=== PATIENT | male | born 1945 | race Two or more races ===

== ENCOUNTER 2017-09-10 14:27 | Outpatient (CLI) | payer MEDICARE, OTHER ==
[~2017-09-10 14:27] MED LIST: ALBUTEROL SULF8.5 GM INH; AMLODIPINE BES2.5 MG ORAL; ATORVASTATIN CA20 MG ORAL; FERROUS SULFAT325 MG ORAL; FISH OIL500 MG PO; FLONASE1 SPRAYS NASAL; LUMIGAN2.5 ML BOTH EYES; MONTELUKAST SOD10 MG ORAL; NEXIUM40 MG ORAL; PROAIR HFA8.5 GM INH; PROMETHAZINE-C118 M1 ORAL; RESTASIS1 EACH BOTH EYES; SELENIUM SULFI120 ML TP; TRUSOPT10 ML BOTH EYES; VITAMIN B COMP1 EAC2 ORAL; VITAMIN D250000 UNI1 ORAL; ZOFRAN ODT4 MG ORAL
--- NOTE | 2017-09-14 13:18 | GI Progress Note ---
Assessment/Plan Problems: (1) Rectal bleed ICD Codes: K62.5 - Hemorrhage of anus and rectum SNOMED: 79262667 (2) GERD (gastroesophageal reflux disease) ICD Codes: K21.9 - GERD (gastroesophageal reflux disease) SNOMED: 892096612 (3) Prostate cancer ICD Codes: C61 - Prostate cancer SNOMED: 543339988 (4) Dehydration ICD Codes: E86.0 - Dehydration SNOMED: 68570840 (5) Dyslipidemia ICD Codes: E78.5 - Dyslipidemia SNOMED: 823656702 (6) Asthma ICD Codes: J45.909 - Asthma SNOMED: 327360137 Status: stable Status Narrative Seen with Dr. Plascencia. Assessment/Plan EGD/colon 2014, s/p EUS c FNA for gastric submucosal lesion, see report. Hemorrhoids vs proctitis however, symptoms most resemble hemorrhoids Annusol HC trial Canasa if above fails RTC x 1 month. Note this is a late entry. The patient was seen and examined at bedside and all new and available data was reviewed in the patients chart. I agree with the above findings, impression and plan. (Patient seen earlier today. Signature stamp does not reflect patient encounter time.). - Renetta Plascencia MD Subjective Subjective constipation rectal bleeding Objective T 98.2 BP 130/76 HR 70 95 RA General Appearance: WD/WN, no apparent distress, alert Cardiovascular: normal rate Respiratory/Chest: normal breath sounds, no respiratory distress Abdominal Exam: normal bowel sounds, non tender, soft Extremities: normal range of motion, non-tender Jayashree Shah N.P. Sep 14, 2017 13:18 WOODY PLASCENCIA Sep 22, 2017 13:27
== END 2017-09-10 14:59 | disposition home or self-care (01) ==
LOC: PAN 14:27
DX: K62.5 Hemorrhage of anus and rectum (principal); K21.9 Gastro-esophageal reflux disease without esophagitis; C61 Malignant neoplasm of prostate; E86.0 Dehydration; E78.5 Hyperlipidemia, unspecified; J45.909 Unspecified asthma, uncomplicated
CPT/HCPCS: 99212

== ENCOUNTER 2017-09-21 14:46 | Outpatient (CLI) | payer MEDICARE, OTHER ==
--- NOTE | 2017-09-21 15:24 | GI Progress Note ---
Assessment/Plan Problems: (1) Proctitis ICD Codes: K62.89 - Other specified diseases of anus and rectum SNOMED: 5878615 (2) Rectal bleed ICD Codes: K62.5 - Hemorrhage of anus and rectum SNOMED: 09442435 Status: stable Status Narrative Seen with Dr. Plascencia. Assessment/Plan trial Canasa & rowasa suppository RTC x 2 weeks. Subjective Subjective abdominal pain rectal bleeding urge to have BM without movement Objective T 98.3 BP 107/71 P 88 95 RA General Appearance: WD/WN, no apparent distress, alert Cardiovascular: normal rate Respiratory/Chest: normal breath sounds, no respiratory distress Abdominal Exam: normal bowel sounds, non tender, soft Extremities: normal range of motion, non-tender Jayashree Shah N.P. Sep 21, 2017 15:24
== END 2017-09-21 15:16 | disposition home or self-care (01) ==
LOC: PAN 14:46
DX: K62.5 Hemorrhage of anus and rectum (principal); K62.89 Other specified diseases of anus and rectum; R10.9 Unspecified abdominal pain
CPT/HCPCS: 99212

== ENCOUNTER 2017-10-06 10:34 | Outpatient (CLI) | payer MEDICARE, OTHER ==
[2017-10-06 15:54] VITALS: BP 119/90
[2017-10-06] MEDS ORDERED: ZANTAC150 MG ORAL (16:00)
[2017-10-06] MEDS ORDERED: PROCTOCREAM-HC30 GM RC (16:00)
[2017-10-06] MEDS ORDERED: CANASA1000 M1 RC (16:00)
[2017-10-06] MEDS ORDERED: ALIGN4 M1 PO (16:00)
[2017-10-06] MEDS ORDERED: KLONOPIN0.5 MG ORAL (16:00)
--- NOTE | 2017-10-07 09:25 | GI Progress Note ---
Assessment/Plan Problems: (1) Rectal bleed ICD Codes: K62.5 - Hemorrhage of anus and rectum SNOMED: 78431459 (2) Proctitis ICD Codes: K62.89 - Other specified diseases of anus and rectum SNOMED: 8988585 (3) Prostate cancer ICD Codes: C61 - Prostate cancer SNOMED: 881379502 (4) GERD (gastroesophageal reflux disease) ICD Codes: K21.9 - GERD (gastroesophageal reflux disease) SNOMED: 629017535 Status: stable Status Narrative Discussed with Dr. Plascencia. Assessment/Plan cont anusol cont Canasa 1gm RTC x 3 months Subjective Subjective anusol working well, less bleed Objective Last 24 Hour Vital Signs Date Time Temp Pulse Resp B/P (MAP) Pulse Ox O2 Delivery O2 Flow Rate FiO2 10/06/17 15:54 98.2 72 119/90 95 98.2 General Appearance: alert Cardiovascular: normal rate Respiratory/Chest: normal breath sounds, no respiratory distress Abdominal Exam: normal bowel sounds, non tender, soft Extremities: normal range of motion, non-tender Jayashree Shah N.P. Oct 07, 2017 09:25
== END 2017-10-06 11:09 | disposition home or self-care (01) ==
LOC: PAN 10:34
DX: K62.5 Hemorrhage of anus and rectum (principal); K62.89 Other specified diseases of anus and rectum; C61 Malignant neoplasm of prostate; K21.9 Gastro-esophageal reflux disease without esophagitis
CPT/HCPCS: 99212

== ENCOUNTER 2018-02-18 13:53 | Outpatient (CLI) | payer MEDICARE, OTHER ==
[~2018-02-18 13:53] MED LIST changes: +ALIGN4 M1 PO; +CANASA1000 M1 RC; +KLONOPIN0.5 MG ORAL; +PROCTOCREAM-HC30 GM RC; +ZANTAC150 MG ORAL
[2018-02-18 14:06] VITALS: BP 123/68
[2018-02-18] MEDS ORDERED: VITAMIN B125000 MCG PO (14:51)
[2018-02-18] MEDS ORDERED: MYRBETRIQ25 MG PO (14:51)
--- NOTE | 2018-02-25 15:17 | General Progress Note ---
Assessment/Plan Problem List: (1) HTN (hypertension) ICD Codes: I10 - HTN (hypertension) SNOMED: 67627579 (2) GERD (gastroesophageal reflux disease) ICD Codes: K21.9 - GERD (gastroesophageal reflux disease) SNOMED: 088086349 (3) Rectal bleed ICD Codes: K62.5 - Hemorrhage of anus and rectum SNOMED: 14515549 Assessment/Plan add rectal steroids Subjective ROS Limited/Unobtainable: Yes Allergies: Coded Allergies: No Known Allergies (Unverified , 10/10/14) Subjective rectal pain Objective General Appearance: alert EENT: normal ENT inspection Neck: supple Cardiovascular: normal rate Respiratory/Chest: decreased breath sounds Abdomen: normal bowel sounds, non tender, soft Extremities: non-tender Garrick Plascencia MD Feb 25, 2018 15:17
== END 2018-02-18 14:25 | disposition home or self-care (01) ==
LOC: PAN 13:53
DX: K21.9 Gastro-esophageal reflux disease without esophagitis (principal); K62.5 Hemorrhage of anus and rectum; I10 Essential (primary) hypertension
CPT/HCPCS: 99212

== ENCOUNTER 2018-03-30 10:25 | Outpatient (CLI) | payer MEDICARE, OTHER ==
[~2018-03-30 10:25] MED LIST changes: +MYRBETRIQ25 MG PO; +VITAMIN B125000 MCG PO
[2018-03-30] MEDS ORDERED: VIBERZI75 MG PO (11:06)
[2018-03-30 11:14] VITALS: BP 117/75
--- NOTE | 2018-03-30 14:54 | GI Progress Note ---
Assessment/Plan Problems: (1) Ulcerative colitis ICD Codes: K51.90 - Ulcerative colitis, unspecified, without complications SNOMED: 85794485 (2) Rectal bleed ICD Codes: K62.5 - Hemorrhage of anus and rectum SNOMED: 95905997 (3) GERD (gastroesophageal reflux disease) ICD Codes: K21.9 - GERD (gastroesophageal reflux disease) SNOMED: 394933087 (4) Dehydration ICD Codes: E86.0 - Dehydration SNOMED: 30348395 Status: stable Status Narrative Seen with Dr. Plascencia. Assessment/Plan Trial Uceris cont enema cont Canasa RTC x 2 weeks The patient was seen and examined at bedside and all new and available data was reviewed in the patients chart. I agree with the above findings, impression and plan. (Patient seen earlier today. Signature stamp does not reflect patient encounter time.). - Garrick Plascencia MD Subjective Subjective abdominal pain >> LUQ/LLQ diarrhea with increased urgency rectal bleed weight loss saw Dr. Wilson last thursday ?Winifred REED Objective Last 24 Hour Vital Signs Date Time Temp Pulse Resp B/P (MAP) Pulse Ox O2 Delivery O2 Flow Rate FiO2 03/30/18 11:14 98.2 68 16 117/75 97 98.2 General Appearance: WD/WN, no apparent distress, alert Cardiovascular: normal rate Respiratory/Chest: normal breath sounds, no respiratory distress Abdominal Exam: normal bowel sounds, non tender, soft Extremities: normal range of motion, non-tender Estelle Shah NP Mar 30, 2018 14:54
== END 2018-03-30 10:55 | disposition home or self-care (01) ==
LOC: PAN 10:25
DX: K51.90 Ulcerative colitis, unspecified, without complications (principal); K62.5 Hemorrhage of anus and rectum; K21.9 Gastro-esophageal reflux disease without esophagitis
CPT/HCPCS: 99212

== ENCOUNTER 2018-04-26 00:37 | Inpatient (IN) | payer MEDICARE, OTHER ==
[~2018-04-26] VITALS: Ht 167.6 cm; Wt 66.7 kg
[~2018-04-26 00:37] MED LIST changes: +VIBERZI75 MG PO
[2018-04-26] MEDS ORDERED: Morphine Sulfate 2mg/ml Inj IVP ONE (01:15)
[2018-04-26] MEDS ORDERED: Pantoprazole Inj IV ONE (01:15)
--- NOTE | 2018-04-26 01:28 | Emergency Room Report ---
History of Present Illness General Chief Complaint: Gastrointestinal Bleed Source: Patient Present Illness HPI 72-year-old male for evaluation. Brought in for rectal bleeding. States he's been having blood in his stool for several months now but got progressively worse over the last few days. Feeling very weak. Has no appetite. Denies any blood thinners. Has been seen by Dr. Plascencia in the past. A seriously admitted to [facility] last week but not for his rectal bleeding. states pain is dull, 5 out of 10, nonradiating. Denies chest pain or shortness of breath. No other aggravating relieving factors. Denies any other associated symptoms Allergies: Uncoded Allergies: SHELLFISH (Allergy, Mild, 04/26/18) Patient History Past Medical History: HTN, asthma Past Surgical History: other - prostatectomy Social History: Denies: smoking, alcohol use, drug use Immunizations: UTD Reviewed Nursing Documentation: PMH: Agreed; PSxH: Agreed Nursing Documentation-PMH Past Medical History: No History, Except For Hx Cardiac Problems: Yes Hx Hypertension: Yes Hx Asthma: Yes Hx Cancer: Yes - prostate removed 2010 Hx Gastrointestinal Problems: Yes - rectal bleed. kidney removal 10 years ago Hx Neurological Problems: No Review of Systems All Other Systems: negative except mentioned in HPI Physical Exam Vital Signs Date Time Temp Pulse Resp B/P (MAP) Pulse Ox O2 Delivery O2 Flow Rate FiO2 04/26/18 00:47 99.7 77 18 100 Room Air 99.7 Sp02 EP Interpretation: reviewed, normal General Appearance: no apparent distress, alert, GCS 15, non-toxic Head: normocephalic, atraumatic Eyes: bilateral eye normal inspection, bilateral eye PERRL ENT: hearing grossly normal, normal pharynx, no angioedema, normal voice Neck: full range of motion, supple/symm/no masses Respiratory: chest non-tender, lungs clear, normal breath sounds, speaking full sentences Cardiovascular #1: regular rate, rhythm, no edema Cardiovascular #2: 2+ carotid (R), 2+ carotid (L), 2+ radial (R), 2+ radial (L) , 2+ dorsalis pedis (R), 2+ dorsalis pedis (L) Gastrointestinal: normal bowel sounds, soft, non-distended, no guarding, no rebound, tenderness Rectal: deferred Genitourinary: normal inspection, no CVA tenderness Musculoskeletal: back normal, gait/station normal, normal range of motion, non- tender Neurologic: alert, oriented x3, responsive, motor strength/tone normal, sensory intact, speech normal Psychiatric: judgement/insight normal, memory normal, mood/affect normal, no suicidal/homicidal ideation Reflexes: 3+ bicep (R), 3+ bicep (L), 3+ tricep (R), 3+ tricep (L), 3+ knee (R) , 3+ knee (L) Skin: normal color, no rash, warm/dry, well hydrated Lymphatic: no adenopathy Medical Decision Making Diagnostic Impression: Primary Impression: LGI bleed Additional Impression: Renal insufficiency ER Course Hospital Course 72-year-old M presents to ED with rectal bleeding, abd pain Differential diagnoses include: UGIB, LGIB, hemorrhoids Clinical course Patient placed on stretcher. monitoring analyst. After initial history and physical I ordered labs, IV fluids, protonix Labs - no leukocytosis, Hb/Hct stable. BUN/Cr elevated. Dr Plascencia contacted regarding care patient recently admitted to Dr Holden at [facility]; case discussed with Dr. Holden and he agreed to accept the patient to his service for further care and support I feel this is a highly complex case requiring extensive working including EKG/ Rhythm strip, Xray/CT/US, Blood/urine lab work, repeat exams while in ED, and administration of strong opiates/narcotics for pain control, admission to hospital or close patient follow up. Diagnosis - LGIB, renal insufficiency Patient admitted to telemetry in serious condition Labs Test 04/26/18 01:17 White Blood Count 10.4 K/UL (4.8-10.8) Red Blood Count 4.18 M/UL (4.70-6.10) Hemoglobin 11.8 G/DL (14.2-18.0) Hematocrit 34.1 % (42.0-52.0) Mean Corpuscular Volume 81 FL (80-99) Mean Corpuscular Hemoglobin 28.2 PG (27.0-31.0) Mean Corpuscular Hemoglobin Concent 34.6 G/DL (32.0-36.0) Red Cell Distribution Width 11.3 % (11.6-14.8) Platelet Count 425 K/UL (150-450) Mean Platelet Volume 4.9 FL (6.5-10.1) Neutrophils (%) (Auto) 55.0 % (45.0-75.0) Lymphocytes (%) (Auto) 34.8 % (20.0-45.0) Monocytes (%) (Auto) 7.4 % (1.0-10.0) Eosinophils (%) (Auto) 2.2 % (0.0-3.0) Basophils (%) (Auto) 0.7 % (0.0-2.0) Prothrombin Time 11.5 SEC (9.30-11.50) Prothromb Time International Ratio 1.1 (0.9-1.1) Activated Partial Thromboplast Time 34 SEC (23-33) Urine Color Yellow Urine Appearance Clear Urine pH 5 (4.5-8.0) Urine Specific [place] 1.015 (1.005-1.035) Urine Protein 1+ (NEGATIVE) Urine Glucose (UA) Negative (NEGATIVE) Urine Ketones Negative (NEGATIVE) Urine Blood 3+ (NEGATIVE) Urine Nitrite Negative (NEGATIVE) Urine Bilirubin Negative (NEGATIVE) Urine Urobilinogen Normal MG/DL (0.0-1.0) Urine Leukocyte Esterase Negative (NEGATIVE) Urine RBC 5-10 /HPF (0 - 0) Urine WBC 0-2 /HPF (0 - 0) Urine Squamous Epithelial Cells Occasional /LPF Urine Bacteria Occasional /HPF (NONE) Sodium Level 132 MMOL/L (136-145) Potassium Level 4.0 MMOL/L (3.5-5.1) Chloride Level 100 MMOL/L (98-107) Carbon Dioxide Level 20 MMOL/L (21-32) Anion Gap 12 mmol/L (5-15) Blood Urea Nitrogen 26 mg/dL (7-18) Creatinine 1.7 MG/DL (0.55-1.30) Estimat Glomerular Filtration Rate mL/min (>60) Glucose Level 134 MG/DL (74-106) Calcium Level 9.0 MG/DL (8.5-10.1) Total Bilirubin 0.3 MG/DL (0.2-1.0) Aspartate Amino Transf (AST/SGOT) 20 U/L (15-37) Alanine Aminotransferase (ALT/SGPT) 23 U/L (12-78) Alkaline Phosphatase 86 U/L (46-116) Total Protein 7.2 G/DL (6.4-8.2) Albumin 2.6 G/DL (3.4-5.0) Globulin 4.6 g/dL Albumin/Globulin Ratio 0.6 (1.0-2.7) Lipase 260 U/L (73-393) Last Vital Signs Date Time Temp Pulse Resp B/P (MAP) Pulse Ox O2 Delivery O2 Flow Rate FiO2 04/26/18 00:47 99.7 77 18 100 Room Air 99.7 Status: improved Disposition: ADMITTED INPATIENT Condition: Serious Referrals: Roney Holden MD (PCP) Jason Rosales MD Apr 26, 2018 01:28
[2018-04-26 01:30] VITALS: BP 126/73
[2018-04-26 01:41] LABS: APPEARANCE,URINE CLEAR; BILIRUBIN, URINE NEGATIVE (NEGATIVE); GLUCOSE, URINE (UA) NEGATIVE (NEGATIVE); KETONES,URINE NEGATIVE (NEGATIVE); LEUKOCYTE ESTERASE ,URINE NEGATIVE (NEGATIVE); NITRITE,URINE NEGATIVE (NEGATIVE); PH,URINE 5 (4.5-8.0); PROTEIN,URINE 1+ (NEGATIVE); UROBILINOGEN,URINE NORMAL MG/DL (0.0-1.0)
[2018-04-26 01:44] LABS: BASOPHILS % (AUTO) 0.7 % (0.0-2.0); COLOR,URINE YELLOW; EOSINOPHILS % (AUTO) 2.2 % (0.0-3.0); HEMATOCRIT 34.1 % (42.0-52.0); HEMOGLOBIN 11.8 G/DL (14.2-18.0); LYMPHOCYTES % (AUTO) 34.8 % (20.0-45.0); MEAN CORPUSCULAR VOLUME 81 FL (80-99); MONOCYTES % (AUTO) 7.4 % (1.0-10.0); PLATELET COUNT 425 K/UL (150-450); RED BLOOD COUNT 4.18 M/UL (4.70-6.10); RED CELL DISTRIBUTION WIDTH 11.3 % (11.6-14.8); WHITE BLOOD COUNT 10.4 K/UL (4.8-10.8)
[2018-04-26 01:45] LABS: ANION GAP 12 mmol/L (5-15); BLOOD UREA NITROGEN 26 mg/dL (7-18); CARBON DIOXIDE 20 MMOL/L (21-32); CHLORIDE 100 MMOL/L (98-107); CREATININE 1.7 MG/DL (0.55-1.30); SODIUM 132 MMOL/L (136-145)
[2018-04-26 01:50] LABS: ALANINE AMINOTRANSFERASE 23 U/L (12-78); ALBUMIN 2.6 G/DL (3.4-5.0); ALBUMIN/GLOBULIN RATIO 0.6 (1.0-2.7); ALKALINE PHOSPHATASE 86 U/L (46-116); ASPARTATE AMINO TRANSFERASE 20 U/L (15-37); BILIRUBIN,TOTAL 0.3 MG/DL (0.2-1.0); INR 1.1 (0.9-1.1)
[2018-04-26 04:00] VITALS: BP 122/71
[2018-04-26] MEDS ORDERED: Albuterol 90mcg Inhaler 8gm INH SCH (07:45)
[2018-04-26] MEDS ORDERED: Flonase Nasal Inhaler 16gm NASAL PRN (07:45)
[2018-04-26] MEDS ORDERED: Hydrocortisone 2.5% Cream - 30gm TOPIC SCH (07:45)
[2018-04-26 08:00] VITALS: BP 121/63
[2018-04-26] MEDS ORDERED: Albuterol 90mcg Inhaler 8gm INH PRN (08:07)
[2018-04-26] MEDS ORDERED: Vitamin D 50,000 units cap ORAL SCH (09:00)
[2018-04-26] MEDS ORDERED: Dorzolamide 2% 10ml Btl BOTH EYES SCH (09:00)
--- NOTE | 2018-04-26 10:18 | GI Initial Consult Note ---
History of Present Illness General Date patient seen: Apr 26, 2018 Time patient seen: 10:15 Reason for Hospitalization: Gastrointestinal Bleed Referring physician: DIONE Reason for Consultation: LGIB Present Illness HPI 72-year-old male for evaluation. Brought in for rectal bleeding. States he's been having blood in his stool for several months now but got progressively worse over the last few days. Feeling very weak. Has no appetite. Denies any blood thinners. Has been seen by Dr. Plascencia in the past. A seriously admitted to [facility] last week but not for his rectal bleeding. states pain is dull, 5 out of 10, nonradiating. Denies chest pain or shortness of breath. No other aggravating relieving factors. Denies any other associated symptoms GI consulted for rectal bleeding. Pt known to us from clinic, history of IBS, gastric submucosal lesion seen on EUS in 2014. Presents today with c/o of diarrhea and hematochezia for months. C/o of generalized weakness. Home Meds Reported Medications Eluxadoline (Viberzi) 75 Mg Tablet, 75 MG PO TID, TAB 03/30/18 Mirabegron (MYRBETRIQ) 25 Mg Tab.er.24h, 25 MG PO DAILY, TAB daily x 2 week then bid x 2week 02/18/18 Cyanocobalamin (Vitamin B-12) (Vitamin B12) 5,000 Mcg Tab.rapdis, PO, TAB once a month 02/18/18 Hydrocortisone (Proctozone-Hc) 30 Gm Cream.appl, 30 GM RC PRN, GM 10/06/17 Clonazepam* (KLONOPIN*) 0.5 Mg Tablet, 0.5 MG ORAL Q6H, #15 TAB 0 Refills 10/06/17 Bifidobacterium Infantis (ALIGN) 4 Mg Capsule, 4 MG PO DAILY, CAP 10/06/17 Mesalamine (CANASA) 1,000 Mg Supp.rect, 1000 MG RC QHS, SUPP 10/06/17 Vitamin B Complex (VITAMIN B COMPLEX) 1 Each Capsule, 1 CAP ORAL DAILY, CAP 0 Refills 10/10/14 [place]-3 Fatty Acids (FISH OIL) 500 Mg Capsule, 1000 MG PO DAILY, CAP 10/10/14 Albuterol Sulfate* (PROAIR HFA*) 8.5 Gm Hfa.aer.ad, 1 PUFF INH Q6H, #8.5 GM 0 Refills 10/10/14 Fluticasone Propionate (Fluticasone Propionate) 1 Sprays Naspr, 1 SPRAY NASAL PRN, EA per nostril 10/10/14 Ergocalciferol (Vitamin D2)* (VITAMIN D*) 50,000 Unit Capsule, 34429 UNIT ORAL ONCE A WEEK, CAP 10/10/14 Amlodipine Besylate* (AMLODIPINE BESYLATE*) 2.5 Mg Tablet, 2.5 MG ORAL DAILY, TAB 10/10/14 Atorvastatin Calcium* (ATORVASTATIN CALCIUM*) 20 Mg Tablet, 10 MG ORAL BEDTIME, TAB 10/10/14 Bimatoprost (LUMIGAN) 2.5 Ml Drops, 1 DROP BOTH EYES DAILY, #2.5 ML 0 Refills 10/10/14 Dorzolamide Hcl* (TRUSOPT*) 10 Ml Drops, 1 DROP BOTH EYES DAILY, #1 ML 0 Refills 10/10/14 Cyclosporine (RESTASIS) 1 Each Droperette, 1 DROP BOTH EYES EVERY 12 HOURS, #1 EA 0 Refills 10/10/14 Med list reviewed/reconciled: Yes Allergies: Coded Allergies: SHELLFISH DERIVED (Verified Allergy, Mild, 04/26/18) COPIED from uncoded section Patient History PMH Narrative Past Medical History: HTN, asthma Past Surgical History: other - prostatectomy Social History: Denies: smoking, alcohol use, drug use Immunizations: UTD Reviewed Nursing Documentation: PMH: Agreed; PSxH: Agreed Nursing Documentation-PMH Past Medical History: No History, Except For Hx Cardiac Problems: Yes Hx Hypertension: Yes Hx Asthma: Yes Hx Cancer: Yes - prostate removed 2010 Hx Gastrointestinal Problems: Yes - rectal bleed. kidney removal 10 years ago Hx Neurological Problems: No Physical Exam Vital Signs Date Time Temp Pulse Resp B/P (MAP) Pulse Ox O2 Delivery O2 Flow Rate FiO2 04/26/18 00:47 99.7 77 18 100 Room Air 99.7 04/26/18 01:30 126/73 Labs Laboratory Tests Test 04/26/18 01:17 White Blood Count 10.4 K/UL (4.8-10.8) Red Blood Count 4.18 M/UL (4.70-6.10) L Hemoglobin 11.8 G/DL (14.2-18.0) L Hematocrit 34.1 % (42.0-52.0) L Mean Corpuscular Volume 81 FL (80-99) Mean Corpuscular Hemoglobin 28.2 PG (27.0-31.0) Mean Corpuscular Hemoglobin Concent 34.6 G/DL (32.0-36.0) Red Cell Distribution Width 11.3 % (11.6-14.8) L Platelet Count 425 K/UL (150-450) Mean Platelet Volume 4.9 FL (6.5-10.1) L Neutrophils (%) (Auto) 55.0 % (45.0-75.0) Lymphocytes (%) (Auto) 34.8 % (20.0-45.0) Monocytes (%) (Auto) 7.4 % (1.0-10.0) Eosinophils (%) (Auto) 2.2 % (0.0-3.0) Basophils (%) (Auto) 0.7 % (0.0-2.0) Prothrombin Time 11.5 SEC (9.30-11.50) Prothromb Time International Ratio 1.1 (0.9-1.1) Activated Partial Thromboplast Time 34 SEC (23-33) H Urine Color Yellow Urine Appearance Clear Urine pH 5 (4.5-8.0) Urine Specific [place] 1.015 (1.005-1.035) Urine Protein 1+ (NEGATIVE) H Urine Glucose (UA) Negative (NEGATIVE) Urine Ketones Negative (NEGATIVE) Urine Blood 3+ (NEGATIVE) H Urine Nitrite Negative (NEGATIVE) Urine Bilirubin Negative (NEGATIVE) Urine Urobilinogen Normal MG/DL (0.0-1.0) Urine Leukocyte Esterase Negative (NEGATIVE) Urine RBC 5-10 /HPF (0 - 0) H Urine WBC 0-2 /HPF (0 - 0) Urine Squamous Epithelial Cells Occasional /LPF Urine Bacteria Occasional /HPF (NONE) Sodium Level 132 MMOL/L (136-145) L Potassium Level 4.0 MMOL/L (3.5-5.1) Chloride Level 100 MMOL/L (98-107) Carbon Dioxide Level 20 MMOL/L (21-32) L Anion Gap 12 mmol/L (5-15) Blood Urea Nitrogen 26 mg/dL (7-18) H Creatinine 1.7 MG/DL (0.55-1.30) H Estimat Glomerular Filtration Rate mL/min (>60) Glucose Level 134 MG/DL (74-106) H Calcium Level 9.0 MG/DL (8.5-10.1) Total Bilirubin 0.3 MG/DL (0.2-1.0) Aspartate Amino Transf (AST/SGOT) 20 U/L (15-37) Alanine Aminotransferase (ALT/SGPT) 23 U/L (12-78) Alkaline Phosphatase 86 U/L (46-116) Total Protein 7.2 G/DL (6.4-8.2) Albumin 2.6 G/DL (3.4-5.0) L Globulin 4.6 g/dL Albumin/Globulin Ratio 0.6 (1.0-2.7) L Lipase 260 U/L (73-393) Current Medications Current Medications Medications (Trade) Dose Ordered Sig/Allan Route PRN Reason Start Time Stop Time Status Last Admin Dose Admin Albuterol Sulfate (Proventil MDI) 1 puff Q6H PRN INH Shortness of Breath 04/26/18 08:07 05/26/18 08:06 Amlodipine Besylate (Norvasc) 2.5 mg DAILY ORAL 04/26/18 09:00 05/26/18 08:59 Atorvastatin Calcium (Lipitor) 10 mg BEDTIME ORAL 04/26/18 21:00 05/26/18 20:59 Clonazepam (KlonoPIN) 0.5 mg Q6HR ORAL 04/26/18 12:00 05/03/18 11:59 Dorzolamide HCl (Trusopt) 1 drop DAILY BOTH EYES 04/26/18 09:00 05/26/18 08:59 Ergocalciferol (Drisdol) 50,000 intlu ONCE A WEEK ORAL 04/26/18 09:00 05/26/18 08:59 Fluticasone Propionate (Flonase) 1 spray PRN PRN NASAL allergies 04/26/18 07:45 05/26/18 07:44 Hydrocortisone (Anusol HC) 1 supp TWICE A DAY RECTAL 04/26/18 18:00 05/26/18 17:59 Mesalamine (Asacol) 800 mg THREE TIMES A DAY ORAL 04/26/18 13:00 05/26/18 12:59 Non-Formulary Medication (Non-Formulary Med) 1 ea DAILY ORAL 04/26/18 09:00 05/26/18 08:59 UNV Non-Formulary Medication (Non-Formulary Med) 1 ea DAILY ORAL 04/26/18 09:00 05/26/18 08:59 UNV Non-Formulary Medication (Non-Formulary Med) 1 ea DAILY ORAL 04/26/18 09:00 05/26/18 08:59 UNV Non-Formulary Medication (Non-Formulary Med) 1 ea DAILY ORAL 04/26/18 09:00 05/26/18 08:59 UNV Non-Formulary Medication (Non-Formulary Med) 1 ea DAILY ORAL 04/27/18 09:00 05/27/18 08:59 UNV Ondansetron HCl (Zofran) 4 mg Q4H PRN IVP Nausea & Vomiting 04/26/18 08:00 05/26/18 07:59 Vitamin B Complex (Vitamin B Complex) 1 tab DAILY ORAL 04/26/18 09:00 05/26/18 08:59 GI: Plan Problems: (1) LGI bleed (2) Prostate cancer (3) Submucosal lesion of stomach (4) GERD (gastroesophageal reflux disease) (5) Dehydration (6) Ulcerative colitis (7) Proctitis Plan Hx of EUS 2014 >> gastric submucosal lesion EGD/colonoscopy scheduled for tomorrow. - CLD now, NPO @ NM. - hold all blood thinners prn transfusions ppi fu labs will follow with additional recs post procedure. Discussed with Dr. Plascencia. Thank you for this patient referral, we will follow. The patient was seen and examined at bedside and all new and available data was reviewed in the patients chart. I agree with the above findings, impression and plan. (Patient seen earlier today. Signature stamp does not reflect patient encounter time.). - MD Alyssa Clayton,Little Colorado Medical CenterHéctor PAPER FINAL INSPECTOR Apr 26, 2018 10:18
[2018-04-26] MEDS: Vitamin B Complex Tab ORAL SCH (10:31)
[2018-04-26] MEDS ORDERED: Phenylephrine 0.25% Nasal Spray NASAL PRN (11:00)
[2018-04-26 12:00] VITALS: BP 100/58
[2018-04-26] MEDS ORDERED: clonazePAM 0.5mg tab ORAL SCH (12:00)
[2018-04-26] MEDS: Phenylephrine 0.25% Nasal Spray NASAL PRN (13:17)
[2018-04-26] MEDS: Cosopt Opth Soln 10 mL Btl BOTH EYES SCH ×3 (13:17→21:00)
[2018-04-26] MEDS: Mesalamine 400mg cap ORAL SCH ×2 (13:18→18:00)
[2018-04-26 16:00] VITALS: BP 118/67
[2018-04-26] MEDS ORDERED: Bisacodyl EC 5mg tab ORAL SCH (16:00)
[2018-04-26] MEDS ORDERED: Nulytely 4L ORAL SCH (16:00)
--- NOTE | 2018-04-26 16:11 | History & Physical ---
History and Physical History & Physicial full note dictated pt seen and examined plan for EGD colonoscopy tomorrow NPO post MN IVF d/w GI Roney Holden MD [phone] Roney Holden MD Apr 26, 2018 16:11
[2018-04-26] MEDS: D5NS 1,000 ML IV SCH (16:48)
[2018-04-26] MEDS ORDERED: Cosopt Opth Soln 10 mL Btl BOTH EYES SCH (18:00)
[2018-04-26] MEDS ORDERED: Hydrocortisone SUPP RECTAL SCH (18:00)
[2018-04-26 19:29] LABS: BASOPHILS % (AUTO) 0.6 % (0.0-2.0); EOSINOPHILS % (AUTO) 4.8 % (0.0-3.0); HEMATOCRIT 30.9 % (42.0-52.0); HEMOGLOBIN 10.8 G/DL (14.2-18.0); LYMPHOCYTES % (AUTO) 34.9 % (20.0-45.0); MEAN CORPUSCULAR VOLUME 84 FL (80-99); MONOCYTES % (AUTO) 6.5 % (1.0-10.0); NEUTROPHILS % (AUTO) 53.2 % (45.0-75.0); PLATELET COUNT 460 K/UL (150-450); RED BLOOD COUNT 3.67 M/UL (4.70-6.10); RED CELL DISTRIBUTION WIDTH 11.6 % (11.6-14.8); WHITE BLOOD COUNT 10.7 K/UL (4.8-10.8)
[2018-04-26 19:45] LABS: ALANINE AMINOTRANSFERASE 19 U/L (12-78); ALBUMIN 2.6 G/DL (3.4-5.0); ALBUMIN/GLOBULIN RATIO 0.6 (1.0-2.7); ALKALINE PHOSPHATASE 81 U/L (46-116); ANION GAP 11 mmol/L (5-15); ASPARTATE AMINO TRANSFERASE 17 U/L (15-37); BILIRUBIN,TOTAL 0.2 MG/DL (0.2-1.0); BLOOD UREA NITROGEN 17 mg/dL (7-18); CARBON DIOXIDE 23 MMOL/L (21-32); CHLORIDE 104 MMOL/L (98-107); CREATININE 1.4 MG/DL (0.55-1.30); SODIUM 138 MMOL/L (136-145)
[2018-04-26 20:00] VITALS: BP 124/76
[2018-04-26] MEDS ORDERED: Latanoprost 0.005% Opth 2.5ml Soln BOTH EYES SCH (21:00)
--- NOTE | 2018-04-26 22:45 | History and Physical Report ---
DATE OF ADMISSION: 04/26/2018 CHIEF COMPLAINT: Rectal bleeding. HISTORY OF PRESENT ILLNESS: This is a pleasant 72-year-old gentleman with a history of proctitis diagnosed in June 2017 with a continuous rectal bleeding intermittently seen by GI doctor Thais to maximize medication including Canasa as well as hydrocortisone suppository with minimal benefit. The patient had recent admission at [facility] last week with a similar complaint in addition to chest pain. The patient was ruled out for acute coronary syndrome. He was noted to have dilatation of the aortic ascending artery 4.3 cm. The patient was supposed to follow as an outpatient to have the EGD and colonoscopy planned with Dr. Plascencia. However, he felt much weaker and dizzy and lightheaded and that prompted him to come to the emergency room. The patient is now being admitted on a clear liquid diet to have EGD and colonoscopy tomorrow by the GI. He denies any chest pain. No nausea, vomiting, or abdominal pain. Reports of hematochezia on occasion with clots. PAST MEDICAL HISTORY: As above. In addition: 1. Hyperlipidemia. 2. Hypertension. 3. Aortic dilatation 4.3 cm ascending aorta. 4. Asthma. ALLERGIES: Shellfish. PAST SURGICAL HISTORY: Prostatectomy. MEDICATIONS: At home, please refer to medication reconciliation. I have reviewed at length. SOCIAL HISTORY: The patient lives with family. No smoking. No alcohol use. No illicit drug use. The patient has a very active lifestyle. He still goes to [id number] twice a week and is very good athlete. REVIEW OF SYSTEMS: A 14-point review of systems done.CONSTITUTIONAL: Reported generalized weakness, occasional dizziness as well as some weight loss over the past several months. HEENT: No change in vision. No tinnitus. No epistaxis. No dysphagia. CARDIAC: No chest pain or palpitation. LUNGS: No cough or wheezing. No shortness of breath. ABDOMEN: No nausea, vomiting, or abdominal pain. Reported hematochezia. NEUROLOGIC: No history of CVA, seizure, or TIA. All other systems reviewed and negative except what is mentioned above. PHYSICAL EXAMINATION: VITAL SIGNS: Temperature is 99.7, respirations 18, pulse 100, and blood pressure 126/73. GENERAL: The patient is lying in bed, not in acute distress. HEENT: Eyes, anicteric. NECK: Supple. CARDIAC: S1 and S2 normal LUNGS: Clear. ABDOMEN: Soft, nontender, and nondistended. No guarding. No rebound. EXTREMITIES: No edema or cyanosis. NEUROLOGIC: No focal sensory or motor deficits. DIAGNOSTIC AND LABORATORY DATA: Stool occult blood is positive. Labs - WBC 10.4, hemoglobin 11.8, hematocrit 34.1, and platelets 425,000. Pro time 11.5, PTT 34. Urinalysis 1+ protein, 3+ blood, glucose is negative, wbc's 0, bacteria occasional. Sodium 132, potassium 4, chloride 100, bicarb 20, BUN 26, and creatinine 1.7. Glucose 134. Total bilirubin 0.3, AST 20, ALT 23, and alkaline phosphatase 86. Total protein 7.2, albumin 2.6. Lipase 260. IMPRESSION: 1. Hematochezia with lower gastrointestinal bleed with history of proctitis. 2. Weight loss. 3. Hyponatremia. 4. Dehydration. 5. Acute kidney injury. 6. 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 7. History of atypical chest pain. 8. History of asthma. 9. History of prostate cancer. 10. History of ulcerative colitis. 11. History of submucosal lesion of the stomach. PLAN: 1. Admit to telemetry. 2. GI evaluation obtained. 3. The patient will be on clear liquid diet for now and NPO after midnight. 4. IV fluids. 5. Monitor hemoglobin and transfuse as needed if hemoglobin falls below 7. 6. EGD and colonoscopy tomorrow. 7. Continue medication per GI. 8. PPI. 9. Recheck electrolytes and replete as indicated. 10. Code status, Full Code. 11. DVT prophylaxis with SCDs. 12. Further recommendations to follow pending the patient's response to above measures and input by consultants. Time spent in evaluation and implementation of care is 75 minutes. Roney Holden M.D. DR: ISHAAN JOB#: [id number] CC:
[2018-04-26] MEDS: Hydrocortisone SUPP RECTAL SCH (22:49)
[2018-04-26] MEDS ORDERED: Fleet's Enema 133ml RECTAL ONE (23:00)
[2018-04-27] VITALS (9 sets, daily range): BP systolic 111–149; BP diastolic 60–89
[2018-04-27] MEDS: Phenylephrine 0.25% Nasal Spray NASAL PRN (04:37)
[2018-04-27] MEDS: D5NS 1,000 ML IV SCH ×3 (04:48→22:30)
[2018-04-27] MEDS ORDERED: Midazolam 2mg/2ml Inj IVP PRN (06:30)
[2018-04-27] MEDS ORDERED: fentaNYL 100 mcg/2 mL IV PRN (06:30)
[2018-04-27] MEDS ORDERED: DiphenhydrAMINE 50mg/ml Inj IVP PRN (06:30)
[2018-04-27] MEDS ORDERED: Atropine Inj 1mg/10ml Syr IV PRN (06:30)
--- NOTE | 2018-04-27 06:40 | Anethesia Preoperative Eval ---
Anesthesia Pre-op PMH/ROS General Date of Evaluation: Apr 27, 2018 Time of Evaluation: 06:31 Anesthesiologist: felipa ASA Score: ASA 3 Mallampati Score Class I : Soft palate, uvula, fauces, pillars visible Class II: Soft palate, uvula, fauces visible Class III: Soft palate, base of uvula visible Class IV: Only hard plate visible Mallampati Classification: Class II Surgeon: maría Diagnosis: lgib Surgical Procedure: egd/colonoscopy Anesthesia History: none Social History: alcohol use - occasional Family History: no anesthesia problems Allergies: Coded Allergies: SHELLFISH DERIVED (Verified Allergy, Mild, 04/26/18) COPIED from uncoded section Medications: see eMAR Patient NPO?: Yes NPO Date: Apr 27, 2018 Past Medical History Cardiovascular: Reports: HTN, other - aortic dilatation Pulmonary: Reports: asthma Gastrointestinal/Genitourinary: Reports: GERD, other - kidney stones, nephrectomy (R), prostate cancer, rectal bleed, prostatectomy, hx/o ulcerative colitis, ibs, HEENT: Reports: cataract (L), cataract (R) Hematology/Immune: Reports: anemia Musculoskeletal/Integumentary: Reports: OA PSxH Narrative: prostatectomy, nephrectomy, bilateral cataract sx, Anesthesia Pre-op Phys. Exam Physician Exam Last Vital Signs Date Time Temp Pulse Resp B/P (MAP) Pulse Ox O2 Delivery O2 Flow Rate FiO2 04/27/18 04:00 72 04/27/18 04:00 97.2 18 128/65 (86) 98 97.2 04/26/18 21:00 Room Air Constitutional: NAD Neurologic: CN 2-12 intact Cardiovascular: RRR Respiratory: CTA Gastrointestinal: S/NT/ND Airway Exam Mallampati Score: Class II MO: limited Neck: flexible TMD: 2fb ROM: limited Anesthesia Pre-op A/P Labs Hematology Test 04/26/18 18:25 White Blood Count 10.7 K/UL (4.8-10.8) Red Blood Count 3.67 M/UL (4.70-6.10) L Hemoglobin 10.8 G/DL (14.2-18.0) L Hematocrit 30.9 % (42.0-52.0) L Mean Corpuscular Volume 84 FL (80-99) Mean Corpuscular Hemoglobin 29.5 PG (27.0-31.0) Mean Corpuscular Hemoglobin Concent 34.9 G/DL (32.0-36.0) Red Cell Distribution Width 11.6 % (11.6-14.8) Platelet Count 460 K/UL (150-450) H Mean Platelet Volume 4.8 FL (6.5-10.1) L Neutrophils (%) (Auto) 53.2 % (45.0-75.0) Lymphocytes (%) (Auto) 34.9 % (20.0-45.0) Monocytes (%) (Auto) 6.5 % (1.0-10.0) Eosinophils (%) (Auto) 4.8 % (0.0-3.0) H Basophils (%) (Auto) 0.6 % (0.0-2.0) Chemistry Test 04/26/18 18:25 Sodium Level 138 MMOL/L (136-145) Potassium Level 4.0 MMOL/L (3.5-5.1) Chloride Level 104 MMOL/L (98-107) Carbon Dioxide Level 23 MMOL/L (21-32) Anion Gap 11 mmol/L (5-15) Blood Urea Nitrogen 17 mg/dL (7-18) Creatinine 1.4 MG/DL (0.55-1.30) H Estimat Glomerular Filtration Rate mL/min (>60) Glucose Level 151 MG/DL (74-106) H Calcium Level 9.0 MG/DL (8.5-10.1) Magnesium Level 1.9 MG/DL (1.8-2.4) Total Bilirubin 0.2 MG/DL (0.2-1.0) Aspartate Amino Transf (AST/SGOT) 17 U/L (15-37) Alanine Aminotransferase (ALT/SGPT) 19 U/L (12-78) Alkaline Phosphatase 81 U/L (46-116) Total Protein 6.6 G/DL (6.4-8.2) Albumin 2.6 G/DL (3.4-5.0) L Globulin 4.0 g/dL Albumin/Globulin Ratio 0.6 (1.0-2.7) L Risk Assessment & Plan Assessment: [email or web address] Plan: mac Status Change Before Surgery: No Pre-Antibiotics Drug: Elo Sullivan MD Apr 27, 2018 06:40
[2018-04-27 07:54] LABS: BASOPHILS % (AUTO) 0.8 % (0.0-2.0); EOSINOPHILS % (AUTO) 5.6 % (0.0-3.0); HEMATOCRIT 28.4 % (42.0-52.0); HEMOGLOBIN 9.3 G/DL (14.2-18.0); LYMPHOCYTES % (AUTO) 27.6 % (20.0-45.0); MEAN CORPUSCULAR VOLUME 83 FL (80-99); NEUTROPHILS % (AUTO) 55.9 % (45.0-75.0); PLATELET COUNT 430 K/UL (150-450); RED BLOOD COUNT 3.44 M/UL (4.70-6.10); RED CELL DISTRIBUTION WIDTH 11.6 % (11.6-14.8)
--- NOTE | 2018-04-27 08:02 | Pre-Procedure Note/Attestation ---
Pre-Procedure Note/Attestation Complete Prior to Procedure Planned Procedure: not applicable Procedure Narrative: esophagogastroduodenoscopy and colonoscopy Indications for Procedure Pre-Operative Diagnosis: anemia, GIB, colitis Attestation I attest that I discussed the nature of the procedure; its benefits; risks and complications; and alternatives (and the risks and benefits of such alternatives ), prior to the procedure, with the patient (or the patient's legal telephone service representative). I attest that, if there was a reasonable possibility of needing a blood transfusion, the patient (or the patient's legal telephone service representative) was given the [facility] standardized written summary, pursuant to the [place] Blood Safety Act ([place] Health and Safety Code # 1645, as amended). I attest that I re-evaluated the patient just prior to the surgery and that there has been no change in the patient's H&P, except as documented below: Garrick Plascencia MD Apr 27, 2018 08:02
[2018-04-27 08:03] LABS: INR 1.1 (0.9-1.1)
[2018-04-27] MEDS: Vitamin B Complex Tab ORAL SCH ×2 (08:08→09:30)
[2018-04-27] MEDS: Hydrocortisone SUPP RECTAL SCH ×3 (08:08→18:38)
[2018-04-27] MEDS: Mesalamine 400mg cap ORAL SCH ×4 (08:08→17:09)
[2018-04-27] MEDS ORDERED: NS 500ML IVPB ONE (08:10)
[2018-04-27 08:32] LABS: ANION GAP 8 mmol/L (5-15); BLOOD UREA NITROGEN 13 mg/dL (7-18); CALCIUM 8.6 MG/DL (8.5-10.1); CARBON DIOXIDE 24 MMOL/L (21-32); CHLORIDE 107 MMOL/L (98-107); CREATININE 1.4 MG/DL (0.55-1.30); POTASSIUM 3.8 MMOL/L (3.5-5.1); SODIUM 139 MMOL/L (136-145)
--- NOTE | 2018-04-27 08:45 | Endoscopy Procedure Note ---
Endoscopy Procedure Note General Indication for Procedure: gib Procedures Performed: EGD, colonoscopy Operative Findings/Diagnosis: severe colitis Specimen: yes Pt Tolerated Procedure Well: Yes Estimated Blood Loss: none Anesthesia Anesthesiologist: kinza chua Anesthesia: MAC Inserted Devices Implant(s) used?: No GI Core Measures 50 yrs or older w/o bx or poly: Not Applicable 10yrs. F/U not recommended: Not Applicable Garrick Plascencia MD Apr 27, 2018 08:45
--- NOTE | 2018-04-27 08:56 | Immediate Post-Op Evaluation ---
Immediate Post-Op Evalulation Immediate Post-Op Evalulation Procedure: egd/colonoscopy/bx Date of Evaluation: Apr 27, 2018 Time of Evaluation: 08:56 IV Fluids: 200ml 0.9ns Blood Products: none Estimated Blood Loss: negligible Blood Pressure Systolic: 149 Blood Pressure Diastolic: 89 Pulse Rate: 74 Respiratory Rate: 18 O2 Sat by Pulse Oximetry: 100 Temperature (Fahrenheit): 98.1 Pain Score (1-10): 0 Nausea: No Vomiting: No Complications none Patient Status: awake, reacts, patent Hydration Status: adequate Drug: Elo Sullivan MD Apr 27, 2018 08:56
--- NOTE | 2018-04-27 08:58 | 48 Hour Post Anesthesia Eval ---
Post Anesthesia Evaluation Procedure: egd/colonoscopy/bx Date of Evaluation: Apr 27, 2018 Time of Evaluation: 08:58 Blood Pressure Systolic: 149 0: 86 Pulse Rate: 74 Respiratory Rate: 18 Temperature (Fahrenheit): 98.1 O2 Sat by Pulse Oximetry: 100 Airway: patent Nausea: No Vomiting: No Pain Intensity: 0 Hydration Status: adequate Cardiopulmonary Status: stable Mental Status/LOC: patient returned to baseline Post-Anesthesia Complications: none Follow-up care needed: N/A Elo Wood MD Apr 27, 2018 08:58
[2018-04-27] MEDS: Pantoprazole Inj IVP SCH ×2 (09:29→20:28)
[2018-04-27] MEDS: Solu-MEDROL 40mg Inj IVP SCH ×2 (13:37→22:00)
--- NOTE | 2018-04-27 15:45 | Procedure Note ---
DATE OF PROCEDURE: 04/27/2018 SURGEON: Garrick Plascencia M.D. ANESTHESIA: Per Dr. Curtis. PROCEDURE: Colonoscopy with biopsy and endoscopy with biopsy and hemostasis. INSTRUMENT: Olympus adult flexible upper endoscope and colonoscope. INDICATION: GI bleeding, history of colitis. REASON FOR PROCEDURE: The procedure, risks, benefits, and possible consequences, including hemorrhage, aspiration, perforation and infection, and alternative treatments, were explained to the patient/legal guardian by Dr. Garrick Plascencia and the patient/legal guardian understood and accepted these risks. DESCRIPTION OF PROCEDURE: After informed consent was obtained and the patient was adequately sedated, Olympus upper endoscope was advanced from mouth into the second portion of duodenum and retroflexion was performed in the stomach. region, there was an area suspicious for GAVE. There was oozing blood in the antrum of the stomach. First, we did biopsy of this area. Then, we did APC for hemostasis in this area. At this time, the upper endoscope was retrieved and the patient was turned around for colonoscopy. First, rectal exam performed, which was positive for internal hemorrhoids. Then, the scope was advanced from rectum to the cecum and then subsequently to terminal ileum. Quality of prep was good. The patient had evidence of diffuse colitis starting from rectum all the way down into the cecum, may be some backwash ileitis also. Biopsy from the terminal ileum, cecum, ascending colon, transverse colon, sigmoid colon, and rectum was obtained for diagnosis. Retroflexion of rectum showed evidence of some internal hemorrhoids. SUMMARY OF FINDINGS: 1. Gastritis, status post biopsy. 2. 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 3. Ulcerative colitis starting from rectum all the way to the cecum, so pancolitis, status post multiple biopsies. See above for details. 4. Internal hemorrhoids. RECOMMENDATIONS: Start the patient on steroids for three days IV steroids. Also start mesalamine p.o. Start clear liquid diet and advance as tolerated. Monitor hemoglobin and hematocrit and transfuse as needed. We will follow up biopsy results. Garrick Plascencia M.D. DR: JL JOB#: [id number] CC:
--- NOTE | 2018-04-27 17:06 | Internal Med Progress Note ---
Subjective Physician Name Roney Holden Attending Physician Roney Holden MD Current Medications Medications (Trade) Dose Ordered Sig/Allan Route PRN Reason Start Time Stop Time Status Last Admin Dose Admin Albuterol Sulfate (Proventil MDI) 1 puff Q6H PRN INH Shortness of Breath 04/26/18 08:07 05/26/18 08:06 Amlodipine Besylate (Norvasc) 2.5 mg DAILY ORAL 04/26/18 09:00 05/26/18 08:59 Atorvastatin Calcium (Lipitor) 10 mg BEDTIME ORAL 04/26/18 21:00 05/26/18 20:59 04/26/18 22:49 Clonazepam (KlonoPIN) 0.5 mg QHS ORAL 04/28/18 21:00 05/05/18 20:59 Dextrose/Sodium Chloride 1,000 ml @ 100 mls/hr Q10H IV 04/26/18 16:30 05/26/18 16:29 04/27/18 04:48 Dorzolamide/ Timolol (Cosopt) 1 drop TWICE A DAY BOTH EYES 04/26/18 11:54 05/26/18 11:53 04/26/18 21:00 Ergocalciferol (Drisdol) 50,000 intlu ONCE A WEEK ORAL 04/26/18 09:00 05/26/18 08:59 Fluticasone Propionate (Flonase) 1 spray PRN PRN NASAL allergies 04/26/18 07:45 05/26/18 07:44 Hydrocortisone (Anusol HC) 1 supp TWICE A DAY RECTAL 04/26/18 18:00 05/26/18 17:59 04/27/18 10:10 Mesalamine (Asacol) 1,600 mg THREE TIMES A DAY ORAL 04/27/18 09:00 05/27/18 08:59 04/27/18 13:37 Methylprednisolone Sodium Succinate (Solu-MEDROL) 20 mg EVERY 8 HOURS IVP 04/27/18 14:00 05/27/18 13:59 04/27/18 13:37 Ondansetron HCl (Zofran) 4 mg Q4H PRN IVP Nausea & Vomiting 04/26/18 08:00 05/26/18 07:59 Pantoprazole (Protonix) 40 mg EVERY 12 HOURS IVP 04/27/18 09:00 05/27/18 08:59 04/27/18 09:29 Phenylephrine HCl (Thuan-Synephrine 0.25% Nasal Soln) 1 sprays Q6H PRN NASAL nasal congestion 04/26/18 12:00 04/29/18 23:59 04/27/18 04:37 Vitamin B Complex (Vitamin B Complex) 1 tab DAILY ORAL 04/26/18 09:00 05/26/18 08:59 04/27/18 09:30 Allergies: Coded Allergies: SHELLFISH DERIVED (Verified Allergy, Mild, 04/26/18) COPIED from uncoded section Constitutional: Reports: weakness HEENT: Reports: no symptoms Cardiovascular: Reports: no symptoms Respiratory: Reports: no symptoms Gastrointestinal/Abdominal: Reports: blood in stool, rectal bleeding All Systems: reviewed and negative except above Objective Last Vital Signs Date Time Temp Pulse Resp B/P (MAP) Pulse Ox O2 Delivery O2 Flow Rate FiO2 04/27/18 16:00 71 04/27/18 12:00 97.9 18 132/66 (88) 99 97.9 04/27/18 09:00 Room Air 04/27/18 08:54 3 General Appearance: WD/WN EENT: PERRL/EOMI Neck: non-tender, supple, normal inspection Cardiovascular: normal rate, regular rhythm, no gallop/murmur, no JVD Respiratory/Chest: lungs clear Abdomen: normal bowel sounds, non tender, soft, no organomegaly, no mass Genitourinary/Rectal: normal genital exam Extremities: non-tender, no calf tenderness Edema: non-pitting 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 grossly normal, oriented x 3 Skin: warm/dry Laboratory Tests Test 04/26/18 18:25 04/27/18 07:23 White Blood Count 10.7 K/UL (4.8-10.8) 9.0 K/UL (4.8-10.8) Red Blood Count 3.67 M/UL (4.70-6.10) L 3.44 M/UL (4.70-6.10) L Hemoglobin 10.8 G/DL (14.2-18.0) L 9.3 G/DL (14.2-18.0) L Hematocrit 30.9 % (42.0-52.0) L 28.4 % (42.0-52.0) L Mean Corpuscular Volume 84 FL (80-99) 83 FL (80-99) Mean Corpuscular Hemoglobin 29.5 PG (27.0-31.0) 27.1 PG (27.0-31.0) Mean Corpuscular Hemoglobin Concent 34.9 G/DL (32.0-36.0) 32.8 G/DL (32.0-36.0) Red Cell Distribution Width 11.6 % (11.6-14.8) 11.6 % (11.6-14.8) Platelet Count 460 K/UL (150-450) H 430 K/UL (150-450) Mean Platelet Volume 4.8 FL (6.5-10.1) L 5.1 FL (6.5-10.1) L Neutrophils (%) (Auto) 53.2 % (45.0-75.0) 55.9 % (45.0-75.0) Lymphocytes (%) (Auto) 34.9 % (20.0-45.0) 27.6 % (20.0-45.0) Monocytes (%) (Auto) 6.5 % (1.0-10.0) 10.0 % (1.0-10.0) Eosinophils (%) (Auto) 4.8 % (0.0-3.0) H 5.6 % (0.0-3.0) H Basophils (%) (Auto) 0.6 % (0.0-2.0) 0.8 % (0.0-2.0) Sodium Level 138 MMOL/L (136-145) 139 MMOL/L (136-145) Potassium Level 4.0 MMOL/L (3.5-5.1) 3.8 MMOL/L (3.5-5.1) Chloride Level 104 MMOL/L (98-107) 107 MMOL/L (98-107) Carbon Dioxide Level 23 MMOL/L (21-32) 24 MMOL/L (21-32) Anion Gap 11 mmol/L (5-15) 8 mmol/L (5-15) Blood Urea Nitrogen 17 mg/dL (7-18) 13 mg/dL (7-18) Creatinine 1.4 MG/DL (0.55-1.30) H 1.4 MG/DL (0.55-1.30) H Estimat Glomerular Filtration Rate mL/min (>60) mL/min (>60) Glucose Level 151 MG/DL (74-106) H 110 MG/DL (74-106) H Calcium Level 9.0 MG/DL (8.5-10.1) 8.6 MG/DL (8.5-10.1) Magnesium Level 1.9 MG/DL (1.8-2.4) Total Bilirubin 0.2 MG/DL (0.2-1.0) Aspartate Amino Transf (AST/SGOT) 17 U/L (15-37) Alanine Aminotransferase (ALT/SGPT) 19 U/L (12-78) Alkaline Phosphatase 81 U/L (46-116) Total Protein 6.6 G/DL (6.4-8.2) Albumin 2.6 G/DL (3.4-5.0) L Globulin 4.0 g/dL Albumin/Globulin Ratio 0.6 (1.0-2.7) L Erythrocyte Sedimentation Rate 70 MM/HR (0-20) H Prothrombin Time 11.9 SEC (9.30-11.50) H Prothromb Time International Ratio 1.1 (0.9-1.1) Activated Partial Thromboplast Time 32 SEC (23-33) C-Reactive Protein, Quantitative 11.1 mg/dL (0.00-0.90) H Intake and Output 04/26/18 04/27/18 19:00 07:00 Intake Total 360 ml Balance 360 ml Intake Oral 360 ml # Voids 3 7 # Bowel Movements 9 8 Assessment/Plan Status: stable Assessment/Plan IMPRESSION: 1. Hematochezia with lower gastrointestinal bleed with history of proctitis. 2. Weight loss. 3. Hyponatremia. 4. Dehydration. 5. Acute kidney injury. 6. 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 7. History of atypical chest pain. 8. History of asthma. 9. History of prostate cancer. 10. History of ulcerative colitis. 11. History of submucosal lesion of the stomach. PLAN: 1. telemetry. 2. GI f/u 3. NPO 4. IV fluids. 5. Monitor hemoglobin and transfuse as needed if hemoglobin falls below 6. EGD and colonoscopy today 7. Continue medication per GI. 8. PPI. 9. Recheck electrolytes and replete as indicated. 10. Code status, Full Code. 11. DVT prophylaxis with SCDs. Roney Holden MD Apr 27, 2018 17:06
[2018-04-27] MEDS: Cosopt Opth Soln 10 mL Btl BOTH EYES SCH (17:10)
[2018-04-28] VITALS: BP 101/60
[2018-04-28] MEDS: Phenylephrine 0.25% Nasal Spray NASAL PRN ×2 (00:58→09:24)
[2018-04-28] MEDS: Solu-MEDROL 40mg Inj IVP SCH ×3 (05:50→21:31)
[2018-04-28 08:00] VITALS: BP 115/68
[2018-04-28] MEDS ORDERED: Lidocaine 1% MPF 10mg/ml 5ml ONE (08:00)
[2018-04-28] MEDS ORDERED: Propofol 200mg/20ml IV ONE (08:00)
[2018-04-28] MEDS: D5NS 1,000 ML IV SCH ×2 (08:30→18:35)
[2018-04-28 09:23] LABS: HEMATOCRIT 30.2 % (42.0-52.0); HEMOGLOBIN 9.9 G/DL (14.2-18.0); MEAN CORPUSCULAR VOLUME 83 FL (80-99); PLATELET COUNT 497 K/UL (150-450); RED BLOOD COUNT 3.64 M/UL (4.70-6.10); RED CELL DISTRIBUTION WIDTH 11.6 % (11.6-14.8)
[2018-04-28] MEDS: Cosopt Opth Soln 10 mL Btl BOTH EYES SCH ×2 (09:23→18:01)
[2018-04-28] MEDS: Hydrocortisone SUPP RECTAL SCH ×2 (09:23→18:01)
[2018-04-28] MEDS: Vitamin B Complex Tab ORAL SCH (09:25)
[2018-04-28] MEDS: Pantoprazole Inj IVP SCH ×2 (09:25→21:30)
[2018-04-28] MEDS: Mesalamine 400mg cap ORAL SCH ×3 (09:25→18:01)
[2018-04-28 09:40] LABS: ANION GAP 8 mmol/L (5-15); BLOOD UREA NITROGEN 16 mg/dL (7-18); CALCIUM 8.7 MG/DL (8.5-10.1); CARBON DIOXIDE 22 MMOL/L (21-32); CHLORIDE 107 MMOL/L (98-107); CREATININE 1.4 MG/DL (0.55-1.30); POTASSIUM 4.3 MMOL/L (3.5-5.1); SODIUM 137 MMOL/L (136-145)
--- NOTE | 2018-04-28 10:30 | GI Progress Note ---
Assessment/Plan Problems: (1) GAVE (gastric antral vascular ectasia) ICD Codes: K31.819 - Angiodysplasia of stomach and duodenum without bleeding SNOMED: 81229679 (2) Pancolitis ICD Codes: K51.00 - Ulcerative (chronic) pancolitis without complications SNOMED: 722323434 (3) LGI bleed ICD Codes: K92.2 - Gastrointestinal hemorrhage, unspecified SNOMED: 92964495 (4) Submucosal lesion of stomach ICD Codes: K31.89 - Submucosal lesion of stomach SNOMED: 79810469 (5) GERD (gastroesophageal reflux disease) ICD Codes: K21.9 - GERD (gastroesophageal reflux disease) SNOMED: 426177614 (6) Ulcerative colitis ICD Codes: K51.90 - Ulcerative colitis, unspecified, without complications SNOMED: 09620836 Status: stable Status Narrative Discussed with Dr. Plascencia. Assessment/Plan SUMMARY OF FINDINGS: 1. Gastritis, status post biopsy. 2. 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 3. Ulcerative colitis starting from rectum all the way to the cecum, so pancolitis, status post multiple biopsies. See above for details. 4. Internal hemorrhoids. RECOMMENDATIONS: Start the patient on steroids for three days IV steroids. Also start mesalamine p.o. Start clear liquid diet and advance as tolerated. Monitor hemoglobin and hematocrit and transfuse as needed. We will follow up biopsy results. fu labs The patient was seen and examined at bedside and all new and available data was reviewed in the patients chart. I agree with the above findings, impression and plan. (Patient seen earlier today. Signature stamp does not reflect patient encounter time.). - Garrick Plascencia MD Subjective Subjective multiple BMs Objective Last 24 Hour Vital Signs Date Time Temp Pulse Resp B/P (MAP) Pulse Ox O2 Delivery O2 Flow Rate FiO2 04/28/18 09:25 80 115/68 04/28/18 08:55 69 18 Room Air 21 04/28/18 08:00 97.2 80 24 115/68 (84) 98 97.2 04/28/18 04:00 63 04/28/18 04:00 04/28/18 00:00 98.3 71 20 101/60 (74) 99 98.3 04/28/18 00:00 72 04/27/18 21:00 Room Air 04/27/18 20:00 72 04/27/18 20:00 98.3 70 20 113/61 (78) 99 98.3 04/27/18 19:52 72 18 Room Air 21 04/27/18 16:00 98.1 73 18 111/60 (77) 100 98.1 04/27/18 16:00 71 04/27/18 12:00 69 04/27/18 12:00 97.9 72 18 132/66 (88) 99 97.9 Intake and Output 04/27/18 04/28/18 19:00 07:00 Intake Total 1480 ml 120 ml Balance 1480 ml 120 ml Intake Oral 480 ml 120 ml IV Total 1000 ml # Voids 3 3 # Bowel Movements 9 6 Laboratory Tests Test 04/28/18 08:30 White Blood Count 11.0 K/UL (4.8-10.8) H Red Blood Count 3.64 M/UL (4.70-6.10) L Hemoglobin 9.9 G/DL (14.2-18.0) L Hematocrit 30.2 % (42.0-52.0) L Mean Corpuscular Volume 83 FL (80-99) Mean Corpuscular Hemoglobin 27.2 PG (27.0-31.0) Mean Corpuscular Hemoglobin Concent 32.8 G/DL (32.0-36.0) Red Cell Distribution Width 11.6 % (11.6-14.8) Platelet Count 497 K/UL (150-450) H Mean Platelet Volume 5.0 FL (6.5-10.1) L Neutrophils (%) (Auto) % (45.0-75.0) Lymphocytes (%) (Auto) % (20.0-45.0) Monocytes (%) (Auto) % (1.0-10.0) Eosinophils (%) (Auto) % (0.0-3.0) Basophils (%) (Auto) % (0.0-2.0) Differential Total Cells Counted 100 Neutrophils % (Manual) 67 % (45-75) Lymphocytes % (Manual) 21 % (20-45) Monocytes % (Manual) 4 % (1-10) Eosinophils % (Manual) 0 % (0-3) Basophils % (Manual) 0 % (0-2) Band Neutrophils 8 % (0-8) Platelet Estimate Increased H Platelet Morphology Normal Red Blood Cell Morphology Normal Sodium Level 137 MMOL/L (136-145) Potassium Level 4.3 MMOL/L (3.5-5.1) Chloride Level 107 MMOL/L (98-107) Carbon Dioxide Level 22 MMOL/L (21-32) Anion Gap 8 mmol/L (5-15) Blood Urea Nitrogen 16 mg/dL (7-18) Creatinine 1.4 MG/DL (0.55-1.30) H Estimat Glomerular Filtration Rate mL/min (>60) Glucose Level 134 MG/DL (74-106) H Calcium Level 8.7 MG/DL (8.5-10.1) C-Reactive Protein, Quantitative 8.7 mg/dL (0.00-0.90) H Height (Feet): 5 Height (Inches): 6.00 Weight (Pounds): 147 General Appearance: WD/WN, no apparent distress, alert Cardiovascular: normal rate Respiratory/Chest: normal breath sounds, no respiratory distress Abdominal Exam: normal bowel sounds, non tender, soft Extremities: normal range of motion, non-tender Estelle Shah NP Apr 28, 2018 10:30
[2018-04-28 12:00] VITALS: BP 95/51
[2018-04-28 16:00] VITALS: BP 113/62
[2018-04-28 20:00] VITALS: BP 122/71
[2018-04-28] MEDS ORDERED: clonazePAM 0.5mg tab ORAL SCH (21:00)
--- NOTE | 2018-04-28 22:12 | Internal Med Progress Note ---
Subjective Date of Service: Apr 28, 2018 Physician Name Roney Holden Attending Physician Roney Holden MD Current Medications Medications (Trade) Dose Ordered Sig/Allan Route PRN Reason Start Time Stop Time Status Last Admin Dose Admin Albuterol Sulfate (Proventil MDI) 1 puff Q6H PRN INH Shortness of Breath 04/26/18 08:07 05/26/18 08:06 Amlodipine Besylate (Norvasc) 2.5 mg DAILY ORAL 04/26/18 09:00 05/26/18 08:59 04/28/18 09:25 Atorvastatin Calcium (Lipitor) 10 mg BEDTIME ORAL 04/26/18 21:00 05/26/18 20:59 04/28/18 21:31 Clonazepam (KlonoPIN) 0.5 mg QHS ORAL 04/28/18 21:00 05/05/18 20:59 04/28/18 21:31 Dextrose/Sodium Chloride 1,000 ml @ 100 mls/hr Q10H IV 04/26/18 16:30 05/26/18 16:29 04/28/18 18:35 Dorzolamide/ Timolol (Cosopt) 1 drop TWICE A DAY BOTH EYES 04/26/18 11:54 05/26/18 11:53 04/28/18 18:01 Ergocalciferol (Drisdol) 50,000 intlu ONCE A WEEK ORAL 04/26/18 09:00 05/26/18 08:59 Fluticasone Propionate (Flonase) 1 spray PRN PRN NASAL allergies 04/26/18 07:45 05/26/18 07:44 04/28/18 09:23 Hydrocortisone (Anusol HC) 1 supp TWICE A DAY RECTAL 04/26/18 18:00 05/26/18 17:59 04/28/18 18:01 Mesalamine (Asacol) 1,600 mg THREE TIMES A DAY ORAL 04/27/18 09:00 05/27/18 08:59 04/28/18 18:01 Methylprednisolone Sodium Succinate (Solu-MEDROL) 20 mg EVERY 8 HOURS IVP 04/27/18 14:00 05/27/18 13:59 04/28/18 21:31 Ondansetron HCl (Zofran) 4 mg Q4H PRN IVP Nausea & Vomiting 04/26/18 08:00 05/26/18 07:59 Pantoprazole (Protonix) 40 mg EVERY 12 HOURS IVP 04/27/18 09:00 05/27/18 08:59 04/28/18 21:30 Phenylephrine HCl (Thuan-Synephrine 0.25% Nasal Soln) 1 sprays Q6H PRN NASAL nasal congestion 04/26/18 12:00 04/29/18 23:59 04/28/18 09:24 Vitamin B Complex (Vitamin B Complex) 1 tab DAILY ORAL 04/26/18 09:00 05/26/18 08:59 04/28/18 09:25 Allergies: Coded Allergies: SHELLFISH DERIVED (Verified Allergy, Mild, 04/26/18) COPIED from uncoded section Constitutional: Reports: no symptoms HEENT: Reports: no symptoms Cardiovascular: Reports: no symptoms Respiratory: Reports: no symptoms Gastrointestinal/Abdominal: Reports: nausea Genitourinary: Reports: no symptoms Neurologic/Psychiatric: Reports: no symptoms All Systems: reviewed and negative except above Objective Last Vital Signs Date Time Temp Pulse Resp B/P (MAP) Pulse Ox O2 Delivery O2 Flow Rate FiO2 04/28/18 18:12 67 04/28/18 16:00 97.0 22 113/62 (79) 100 97.0 04/28/18 08:55 Room Air 21 04/27/18 08:54 3 General Appearance: no apparent distress EENT: normal ENT inspection Neck: non-tender, supple, normal inspection Cardiovascular: regular rhythm, no gallop/murmur, no JVD Respiratory/Chest: lungs clear Abdomen: non tender, soft, no mass Extremities: non-tender Edema: other - no edema Neurologic: other - anxious Laboratory Tests Test 04/28/18 08:30 White Blood Count 11.0 K/UL (4.8-10.8) H Red Blood Count 3.64 M/UL (4.70-6.10) L Hemoglobin 9.9 G/DL (14.2-18.0) L Hematocrit 30.2 % (42.0-52.0) L Mean Corpuscular Volume 83 FL (80-99) Mean Corpuscular Hemoglobin 27.2 PG (27.0-31.0) Mean Corpuscular Hemoglobin Concent 32.8 G/DL (32.0-36.0) Red Cell Distribution Width 11.6 % (11.6-14.8) Platelet Count 497 K/UL (150-450) H Mean Platelet Volume 5.0 FL (6.5-10.1) L Neutrophils (%) (Auto) % (45.0-75.0) Lymphocytes (%) (Auto) % (20.0-45.0) Monocytes (%) (Auto) % (1.0-10.0) Eosinophils (%) (Auto) % (0.0-3.0) Basophils (%) (Auto) % (0.0-2.0) Differential Total Cells Counted 100 Neutrophils % (Manual) 67 % (45-75) Lymphocytes % (Manual) 21 % (20-45) Monocytes % (Manual) 4 % (1-10) Eosinophils % (Manual) 0 % (0-3) Basophils % (Manual) 0 % (0-2) Band Neutrophils 8 % (0-8) Platelet Estimate Increased H Platelet Morphology Normal Red Blood Cell Morphology Normal Sodium Level 137 MMOL/L (136-145) Potassium Level 4.3 MMOL/L (3.5-5.1) Chloride Level 107 MMOL/L (98-107) Carbon Dioxide Level 22 MMOL/L (21-32) Anion Gap 8 mmol/L (5-15) Blood Urea Nitrogen 16 mg/dL (7-18) Creatinine 1.4 MG/DL (0.55-1.30) H Estimat Glomerular Filtration Rate mL/min (>60) Glucose Level 134 MG/DL (74-106) H Calcium Level 8.7 MG/DL (8.5-10.1) C-Reactive Protein, Quantitative 8.7 mg/dL (0.00-0.90) H Microbiology Date/Time Source Procedure Growth Status 04/26/18 05:05 Nasal Nares MRSA Culture - Final NO METHICILLIN RESISTANT STAPH AUREUS... Complete 04/27/18 17:30 Stool Clostridium difficile Toxin Assay - Final Complete 04/26/18 05:05 Rectum VRE Culture - Final NO VANCOMYCIN RESISTANT ENTEROCOCCUS ... Complete Intake and Output 04/27/18 04/28/18 19:00 07:00 Intake Total 1480 ml 120 ml Balance 1480 ml 120 ml Intake Oral 480 ml 120 ml IV Total 1000 ml # Voids 3 3 # Bowel Movements 9 6 Assessment/Plan Status: doing well, stable, progressing Assessment/Plan IMPRESSION: Hematochezia with lower gastrointestinal bleed with history of proctitis. 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 Hyponatremia. Dehydration. Acute kidney injury. 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 History of atypical chest pain. History of asthma. History of prostate cancer. History of ulcerative colitis. History of submucosal lesion of the stomach. Anxiety PLAN: 3 days of IV solumedrol PO Asacol TID ativan prn dc telemetry. GI f/u clear liquid DC IV fluids. Monitor hemoglobin and transfuse as needed if hemoglobin falls below EGD and colonoscopy noted. f/o path result PPI. Recheck electrolytes and replete as indicated. Code status, Full Code. DVT prophylaxis with SCDs. Roney Holden MD Apr 28, 2018 22:12
[2018-04-28] MEDS ORDERED: LORazepam 0.5mg tab ORAL PRN (22:15)
[2018-04-29] VITALS: BP 98/55
[2018-04-29 04:00] VITALS: BP 106/58
[2018-04-29] MEDS: D5NS 1,000 ML IV SCH ×3 (05:22→17:00)
[2018-04-29] MEDS: Solu-MEDROL 40mg Inj IVP SCH ×2 (05:22→13:18)
[2018-04-29 08:00] VITALS: BP 115/50
[2018-04-29] MEDS: Phenylephrine 0.25% Nasal Spray NASAL PRN (08:58)
[2018-04-29] MEDS: Mesalamine 400mg cap ORAL SCH ×3 (08:58→18:26)
[2018-04-29] MEDS: Pantoprazole Inj IVP SCH ×2 (08:58→20:59)
[2018-04-29] MEDS: Vitamin B Complex Tab ORAL SCH (08:58)
[2018-04-29] MEDS: Cosopt Opth Soln 10 mL Btl BOTH EYES SCH ×2 (08:58→17:36)
[2018-04-29] MEDS: Hydrocortisone SUPP RECTAL SCH ×2 (09:06→17:37)
--- NOTE | 2018-04-29 11:24 | GI Progress Note ---
Assessment/Plan Problems: (1) GAVE (gastric antral vascular ectasia) ICD Codes: K31.819 - Angiodysplasia of stomach and duodenum without bleeding SNOMED: 92368867 (2) Pancolitis ICD Codes: K51.00 - Ulcerative (chronic) pancolitis without complications SNOMED: 583265612 (3) LGI bleed ICD Codes: K92.2 - Gastrointestinal hemorrhage, unspecified SNOMED: 32833355 (4) Submucosal lesion of stomach ICD Codes: K31.89 - Submucosal lesion of stomach SNOMED: 38701471 (5) GERD (gastroesophageal reflux disease) ICD Codes: K21.9 - GERD (gastroesophageal reflux disease) SNOMED: 875770213 (6) Ulcerative colitis ICD Codes: K51.90 - Ulcerative colitis, unspecified, without complications SNOMED: 37128871 Status: stable Status Narrative Discussed with Dr. Plascencia. Assessment/Plan SUMMARY OF FINDINGS: 1. Gastritis, status post biopsy. 2. 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 3. Ulcerative colitis starting from rectum all the way to the cecum, so pancolitis, status post multiple biopsies. See above for details. 4. Internal hemorrhoids. RECOMMENDATIONS: Last dose Solumedrol @ 1400 today, change to Predisone 40mg PO tomorrow. >> okay for DC per GI standpoint tomorrow. Also start mesalamine p.o. on low fiber diet Monitor hemoglobin and hematocrit and transfuse as needed. We will follow up biopsy results. fu labs The patient was seen and examined at bedside and all new and available data was reviewed in the patients chart. I agree with the above findings, impression and plan. (Patient seen earlier today. Signature stamp does not reflect patient encounter time.). - Garrick Plascencia MD Subjective Subjective had BM, bleeding has greatly resolved denies abdominal pain, wants to be discharge Objective Last 24 Hour Vital Signs Date Time Temp Pulse Resp B/P (MAP) Pulse Ox O2 Delivery O2 Flow Rate FiO2 04/29/18 09:45 84 16 Room Air 21 04/29/18 08:57 55 115/50 04/29/18 08:10 Room Air 04/29/18 08:00 97.2 55 18 115/50 (71) 99 97.2 04/29/18 07:38 65 04/29/18 04:00 97.5 58 20 106/58 (74) 100 97.5 04/29/18 04:00 54 04/29/18 00:00 97.7 63 20 98/55 (69) 98 97.7 04/28/18 21:00 Room Air 04/28/18 20:15 67 18 Room Air 21 04/28/18 20:00 98.2 67 20 122/71 (88) 99 98.2 04/28/18 20:00 68 04/28/18 18:12 67 04/28/18 16:00 97.0 59 22 113/62 (79) 100 97.0 04/28/18 12:03 66 04/28/18 12:00 97.2 66 22 95/51 (66) 97 97.2 Intake and Output 04/28/18 04/29/18 19:00 07:00 Intake Total 400 ml Balance 400 ml Intake Oral 400 ml # Voids 1 3 # Bowel Movements 2 Height (Feet): 5 Height (Inches): 6.00 Weight (Pounds): 147 General Appearance: WD/WN, no apparent distress, alert Cardiovascular: normal rate Respiratory/Chest: normal breath sounds, no respiratory distress Abdominal Exam: normal bowel sounds, non tender, soft Extremities: normal range of motion, non-tender Estelle Shah HOUSE WIRER Apr 29, 2018 11:24
[2018-04-29 12:00] VITALS: BP 102/62
[2018-04-29 16:00] VITALS: BP 126/65
[2018-04-29] MEDS ORDERED: Phenylephrine 0.25% Nasal Spray NASAL PRN (17:00)
[2018-04-29] MEDS ORDERED: LORazepam 0.5mg tab ORAL PRN (17:00)
[2018-04-29 20:00] VITALS: BP 119/63
[2018-04-29] MEDS ORDERED: Albuterol 90mcg Inhaler 8gm INH PRN (20:15)
[2018-04-29] MEDS ORDERED: clonazePAM 0.5mg tab ORAL SCH (21:00)
[2018-04-29] MEDS ORDERED: Solu-MEDROL 40mg Inj IVP SCH (22:00)
[2018-04-30 01:00] VITALS: BP 118/65
[2018-04-30] MEDS: D5NS 1,000 ML IV SCH ×2 (03:00→13:00)
[2018-04-30 04:00] VITALS: BP 112/63
[2018-04-30] MEDS ORDERED: Flonase Nasal Inhaler 16gm NASAL PRN (07:45)
[2018-04-30 08:00] VITALS: BP 130/70
[2018-04-30 08:16] VITALS: BP 130/71
[2018-04-30] MEDS: Pantoprazole Inj IVP SCH (08:16)
[2018-04-30] MEDS: Cosopt Opth Soln 10 mL Btl BOTH EYES SCH (08:19)
[2018-04-30] MEDS: Hydrocortisone SUPP RECTAL SCH (08:19)
[2018-04-30] MEDS ORDERED: Vitamin B Complex Tab ORAL SCH (09:00)
[2018-04-30] MEDS: Mesalamine 400mg cap ORAL SCH ×2 (10:45→13:54)
--- NOTE | 2018-04-30 11:01 | GI Progress Note ---
Assessment/Plan Problems: (1) GAVE (gastric antral vascular ectasia) ICD Codes: K31.819 - Angiodysplasia of stomach and duodenum without bleeding SNOMED: 92286234 (2) Pancolitis ICD Codes: K51.00 - Ulcerative (chronic) pancolitis without complications SNOMED: 657038620 (3) LGI bleed ICD Codes: K92.2 - Gastrointestinal hemorrhage, unspecified SNOMED: 78897826 (4) Submucosal lesion of stomach ICD Codes: K31.89 - Submucosal lesion of stomach SNOMED: 36356708 (5) GERD (gastroesophageal reflux disease) ICD Codes: K21.9 - GERD (gastroesophageal reflux disease) SNOMED: 625841927 (6) Ulcerative colitis ICD Codes: K51.90 - Ulcerative colitis, unspecified, without complications SNOMED: 64370211 Status: stable Status Narrative Discussed with Dr. Plascencia. Assessment/Plan SUMMARY OF FINDINGS: 1. Gastritis, status post biopsy. 2. 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 3. Ulcerative colitis starting from rectum all the way to the cecum, so pancolitis, status post multiple biopsies. See above for details. 4. Internal hemorrhoids. RECOMMENDATIONS: okay for DC per GI standpoint Needs to be on Predisone Taper for a month & Apriso, will call in Rx for patient. RTC to clinic in 2 days Monitor hemoglobin and hematocrit and transfuse as needed. We will follow up biopsy results. fu labs The patient was seen and examined at bedside and all new and available data was reviewed in the patients chart. I agree with the above findings, impression and plan. (Patient seen earlier today. Signature stamp does not reflect patient encounter time.). - Garrick Plascencia MD Subjective Subjective abdominal pain resolved hematochezia resolved Objective Last 24 Hour Vital Signs Date Time Temp Pulse Resp B/P (MAP) Pulse Ox O2 Delivery O2 Flow Rate FiO2 04/30/18 08:16 56 130/71 04/30/18 08:00 97.6 56 18 130/70 (90) 99 97.6 04/30/18 07:20 65 17 Room Air 21 04/30/18 04:00 97.3 60 18 112/63 (79) 99 97.3 04/30/18 01:00 97.6 67 18 118/65 (82) 97 97.6 04/29/18 21:00 Room Air 04/29/18 20:00 97.5 64 18 119/63 (81) 100 97.5 04/29/18 19:04 86 16 Room Air 21 04/29/18 16:00 97.5 61 18 126/65 (85) 99 97.5 04/29/18 12:00 97.5 75 18 102/62 (75) 100 97.5 04/29/18 12:00 71 Intake and Output 04/29/18 04/30/18 18:59 06:59 Intake Total 640 ml 480 ml Balance 640 ml 480 ml Intake Oral 640 ml 480 ml # Voids 3 2 # Bowel Movements 5 Height (Feet): 5 Height (Inches): 6.00 Weight (Pounds): 147 General Appearance: WD/WN, no apparent distress, alert Cardiovascular: normal rate Respiratory/Chest: normal breath sounds, no respiratory distress Abdominal Exam: normal bowel sounds, non tender, soft Extremities: normal range of motion, non-tender Estelle Shah NP Apr 30, 2018 11:01
--- NOTE | 2018-04-30 13:27 | Internal Med Progress Note ---
Subjective Date of Service: Apr 29, 2018 Physician Name Roney Holden Attending Physician Roney Holden MD Current Medications Medications (Trade) Dose Ordered Sig/Allan Route PRN Reason Start Time Stop Time Status Last Admin Dose Admin Albuterol Sulfate (Proventil MDI) 1 puff Q6H PRN INH Shortness of Breath 04/29/18 20:15 05/26/18 08:06 Amlodipine Besylate (Norvasc) 2.5 mg DAILY ORAL 04/30/18 09:00 05/26/18 08:59 04/30/18 08:16 Atorvastatin Calcium (Lipitor) 10 mg BEDTIME ORAL 04/29/18 21:00 05/26/18 20:59 04/29/18 20:59 Clonazepam (KlonoPIN) 0.5 mg QHS ORAL 04/29/18 21:00 05/05/18 20:59 04/29/18 20:59 Dextrose/Sodium Chloride 1,000 ml @ 100 mls/hr Q10H IV 04/29/18 17:00 05/26/18 16:29 Dorzolamide/ Timolol (Cosopt) 1 drop TWICE A DAY BOTH EYES 04/29/18 18:00 05/26/18 11:53 04/30/18 08:19 Ergocalciferol (Drisdol) 50,000 intlu ONCE A WEEK ORAL 05/03/18 09:00 05/26/18 08:59 Fluticasone Propionate (Flonase) 1 spray PRN PRN NASAL allergies 04/30/18 07:45 05/26/18 07:44 04/30/18 01:10 Hydrocortisone (Anusol HC) 1 supp TWICE A DAY RECTAL 04/29/18 18:00 05/26/18 17:59 04/30/18 08:19 Lorazepam (Ativan) 0.5 mg TIDPRN PRN ORAL For Anxiety 04/29/18 17:00 05/05/18 16:59 Mesalamine (Asacol) 1,600 mg THREE TIMES A DAY ORAL 04/29/18 18:00 05/27/18 08:59 04/30/18 10:45 Ondansetron HCl (Zofran) 4 mg Q4H PRN IVP Nausea & Vomiting 04/29/18 17:00 05/26/18 16:59 Pantoprazole (Protonix) 40 mg EVERY 12 HOURS IVP 04/29/18 21:00 05/27/18 08:59 04/30/18 08:16 Vitamin B Complex (Vitamin B Complex) 1 tab DAILY ORAL 04/30/18 09:00 05/26/18 08:59 04/30/18 08:15 Allergies: Coded Allergies: SHELLFISH DERIVED (Verified Allergy, Mild, 04/26/18) COPIED from uncoded section Constitutional: Reports: no symptoms Cardiovascular: Reports: no symptoms Respiratory: Reports: no symptoms Gastrointestinal/Abdominal: Reports: nausea Genitourinary: Reports: no symptoms Neurologic/Psychiatric: Reports: no symptoms All Systems: reviewed and negative except above Objective Last Vital Signs Date Time Temp Pulse Resp B/P (MAP) Pulse Ox O2 Delivery O2 Flow Rate FiO2 04/30/18 08:16 56 130/71 04/30/18 08:00 97.6 18 99 97.6 04/30/18 07:20 Room Air 21 04/27/18 08:54 3 General Appearance: alert Neck: non-tender, supple Respiratory/Chest: lungs clear, no respiratory distress, no accessory muscle use Abdomen: normal bowel sounds, non tender, soft, no organomegaly, no mass Extremities: non-tender Neurologic: oriented x 3 Skin: warm/dry Microbiology Date/Time Source Procedure Growth Status 04/27/18 17:30 Stool Clostridium difficile Toxin Assay - Final Complete Intake and Output 04/29/18 04/30/18 18:59 06:59 Intake Total 640 ml 480 ml Balance 640 ml 480 ml Intake Oral 640 ml 480 ml # Voids 3 2 # Bowel Movements 5 Assessment/Plan Status: doing well, stable Assessment/Plan IMPRESSION: Hematochezia with lower gastrointestinal bleed with history of proctitis. 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 Hyponatremia. Dehydration. Acute kidney injury. 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 History of atypical chest pain. History of asthma. History of prostate cancer. History of ulcerative colitis. History of submucosal lesion of the stomach. Anxiety PLAN: 3 days of IV solumedrol last day today start po prednisone tomorrow PO Asacol TID ativan prn dc telemetry. GI f/u advance diet per GI DC IV fluids. Monitor hemoglobin and transfuse as needed if hemoglobin falls below EGD and colonoscopy noted. f/o path result PPI. Recheck electrolytes and replete as indicated. Code status, Full Code. DVT prophylaxis with SCDs. dc planning 04/30 Roney Holden MD Apr 30, 2018 13:27
--- NOTE | 2018-05-02 10:17 | Discharge Summary ---
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 Patient was followed up by GI specialist Dr. Plascencia. Patient had recent admission to [facility] for chest pain as well as the similar complaints. Patient was ruled out for acute coronary syndrome. He was noted to have a dilatation of aortic ascending artery 4.3 cm. Patient was scheduled for outpatient EGD and colonoscopy. However he felt progressively weak, dizzy and lightheaded , reported poor appetite and weight loss. All these symptoms prompted him to come to emergency room for further evaluation . He reported abdominal pain nonradiating , 5 out of 10 on a scale 1-10. He denied being on any anticoagulation. He denied chest pain or shortness of breath upon evaluation Laboratory workup revealed WBC 10.4 ,hemoglobin 11.4 ,hematocrit 24.1. Urinalysis with no evidence of UTI, +3 blood . sodium 134, BUN 26, creatinine 1.7. LFT and lipase within normal limits Patient was admitted with diagnoses of lower GI bleeding with hematochezia, history of proctitis, weight loss, hyponatremia, dehydration, acute kidney injury, history of aortic ascending aorta dilatation 4.6 cm, asthma , prostate cancer , ulcerative colitis. CONSULTANTS: GI specialist [facility]: Patient admitted to telemetry floor. GI evaluation was requested . Patient started on the IV fluids and clear liquid diet . Patient subsequently undergone endoscopy and colonoscopy on 04/27, Endoscopy revealed gastritis , status post biopsy. Probable gastric antral vascular ectasia (GAVE), status post biopsy and hemostasis. Noted ulcerated colitis , starting from rectum all the way to the cecum. , thus making it pancolitis, status post multiply biopsy. Internal hemorrhoids noted as well. Patient started on IV steroids for 3 days and subsequently transitioned to oral prednisone . Per GI specialist , patient will need one-month of prednisone with gradual tapering. Patient also started on mesalamine. Biopsy results still pending. Pain management was addressed . GI prophylaxis provided . Patient started on Anusol suppository. Hemoglobin and hematocrit were closely monitored with goal to keep hemoglobin above 7. Prior to discharge hemoglobin 9.9 hematocrit 30.2. Patient to follow up with GI specialist in 2 days in clinic for further management. Renal parameters and electrolytes were closely monitored, electrolytes corrected, and nephrotoxics were avoided. : With IV hydration, creatinine from 1.7 down to 1.4 , and BUN from 26 down to 16. Hyponatremia resolved . Prior to discharge sodium 137. Supplemental oxygen provided as needed to keep pulse oximetry above 92%. Pulmonary toilet provided as needed. No evidence of respiratory distress. Blood pressure was managed with calcium channel lavelle and remained stable. Statin was continued. GI cleared patient for discharge with outpatient follow up as advised. 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 DISCHARGE INSTRUCTIONS: Patient was discharged home. Outpatient follow up with GI specialist in 2 days as advised. I have been assigned to dictate discharge summary for this account. I was not involved in the patient's management. Charlotte Gaviria NP May 02, 2018 10:17
[2018-05-03] MEDS ORDERED: Vitamin D 50,000 units cap ORAL SCH (09:00)
== END 2018-04-30 14:45 | disposition home or self-care (01) | DRG 378 ==
LOC: EMR 01:06 → 2E 02:06 → EDBEDREQ 02:28 → 3E 04-29 16:55 → SDSOVERFLO 04-30 11:08 → 3E 04-30 11:10
PROC: 0DBH8ZX Excision of Cecum, Via Natural or Artificial Opening Endoscopic, Diagnostic (ICD-10-PCS; principal; 2018-04-27 08:12)
PROC: 0DBK8ZX Excision of Ascending Colon, Via Natural or Artificial Opening Endoscopic, Diagnostic (ICD-10-PCS; principal; 2018-04-27 08:12)
PROC: 0DBP8ZX Excision of Rectum, Via Natural or Artificial Opening Endoscopic, Diagnostic (ICD-10-PCS; principal; 2018-04-27 08:12)
PROC: 0DB78ZX Excision of Stomach, Pylorus, Via Natural or Artificial Opening Endoscopic, Diagnostic (ICD-10-PCS; principal; 2018-04-27 08:12)
PROC: 0DBN8ZX Excision of Sigmoid Colon, Via Natural or Artificial Opening Endoscopic, Diagnostic (ICD-10-PCS; principal; 2018-04-27 08:12)
PROC: 0DBL8ZX Excision of Transverse Colon, Via Natural or Artificial Opening Endoscopic, Diagnostic (ICD-10-PCS; principal; 2018-04-27 08:12)
PROC: 0W3P8ZZ Control Bleeding in Gastrointestinal Tract, Via Natural or Artificial Opening Endoscopic (ICD-10-PCS; principal; 2018-04-27 08:12)
PROC: 0DBB8ZX Excision of Ileum, Via Natural or Artificial Opening Endoscopic, Diagnostic (ICD-10-PCS; principal; 2018-04-27 08:12)
DX: K31.811 Angiodysplasia of stomach and duodenum with bleeding (principal); N17.9 Acute kidney failure, unspecified; E87.1 Hypo-osmolality and hyponatremia; K51.00 Ulcerative (chronic) pancolitis without complications; E86.0 Dehydration; E78.5 Hyperlipidemia, unspecified; I10 Essential (primary) hypertension; R63.4 Abnormal weight loss; J45.909 Unspecified asthma, uncomplicated; Z85.46 Personal history of malignant neoplasm of prostate; Z90.79 Acquired absence of other genital organ(s); K64.8 Other hemorrhoids; K29.70 Gastritis, unspecified, without bleeding; F41.9 Anxiety disorder, unspecified; K21.9 Gastro-esophageal reflux disease without esophagitis; K62.89 Other specified diseases of anus and rectum; K31.89 Other diseases of stomach and duodenum; I77.810 Thoracic aortic ectasia
CPT/HCPCS: 36415; 80048; 80053; 81003; 83690; 83735; 85007; 85025; 85610; 85651; 85730; 86140; 86850; 86900; 86901; 87081; 87324; 94003; 94150; 94664; 96361; 96374; 96375; 99285

== ENCOUNTER 2018-05-17 14:07 | Outpatient (CLI) | payer MEDICARE, OTHER ==
[2018-05-17 15:03] VITALS: BP 112/59
[2018-05-17] MEDS ORDERED: APRISO0.375 GM PO (15:06)
[2018-05-17] MEDS ORDERED: PREDNISONE10 MG ORAL (15:06)
--- NOTE | 2018-05-17 21:57 | GI Progress Note ---
Assessment/Plan Problems: (1) Ulcerative colitis ICD Codes: K51.90 - Ulcerative colitis, unspecified, without complications SNOMED: 66604427 (2) Pancolitis ICD Codes: K51.00 - Ulcerative (chronic) pancolitis without complications SNOMED: 734844026 Status: stable Status Narrative Seen with Dr. Plascencia. Assessment/Plan Apriso 4mg daily Prednisone 10mg 2 tabs daily RTC [id number] The patient was seen and examined at bedside and all new and available data was reviewed in the patients chart. I agree with the above findings, impression and plan. (Patient seen earlier today. Signature stamp does not reflect patient encounter time.). - Garrick Plascencia MD Subjective Subjective Abdominal pain decreased, but still has discomfort constipation vs diarrhea >> has normal BM but increased urgency of BM Denies rectal pain/bleeding c/o leg edema Objective Last 24 Hour Vital Signs Date Time Temp Pulse Resp B/P (MAP) Pulse Ox O2 Delivery O2 Flow Rate FiO2 05/17/18 15:03 98.1 16 112/59 97 General Appearance: WD/WN, no apparent distress, alert Cardiovascular: normal rate Respiratory/Chest: normal breath sounds, no respiratory distress Abdominal Exam: normal bowel sounds, non tender, soft Extremities: normal range of motion, non-tender Estelle Shah MANAGER OF HOSPITAL May 17, 2018 21:57
== END 2018-05-17 14:37 | disposition home or self-care (01) ==
LOC: PAN 14:07
DX: K51.90 Ulcerative colitis, unspecified, without complications (principal); K51.00 Ulcerative (chronic) pancolitis without complications
CPT/HCPCS: 99212

== ENCOUNTER 2018-05-25 09:30 | Outpatient (CLI) | payer MEDICARE, OTHER ==
[~2018-05-25 09:30] MED LIST changes: +APRISO0.375 GM PO; +PREDNISONE10 MG ORAL
[2018-05-25 09:44] VITALS: BP 128/77
[2018-05-25 11:27] LABS: BASOPHILS % (AUTO) 0.3 % (0.0-2.0); EOSINOPHILS % (AUTO) 0.1 % (0.0-3.0); HEMATOCRIT 31.5 % (42.0-52.0); HEMOGLOBIN 10.1 G/DL (14.2-18.0); LYMPHOCYTES % (AUTO) 24.1 % (20.0-45.0); MEAN CORPUSCULAR VOLUME 85 FL (80-99); MONOCYTES % (AUTO) 6.2 % (1.0-10.0); NEUTROPHILS % (AUTO) 69.3 % (45.0-75.0); PLATELET COUNT 218 K/UL (150-450); RED CELL DISTRIBUTION WIDTH 14.5 % (11.6-14.8); WHITE BLOOD COUNT 6.6 K/UL (4.8-10.8)
[2018-05-25 11:32] LABS: ALANINE AMINOTRANSFERASE 38 U/L (12-78); ALBUMIN 2.6 G/DL (3.4-5.0); ALKALINE PHOSPHATASE 82 U/L (46-116); ASPARTATE AMINO TRANSFERASE 17 U/L (15-37); BILIRUBIN,DIRECT < 0.1 MG/DL (0.0-0.3); BILIRUBIN,TOTAL 0.3 MG/DL (0.2-1.0)
--- NOTE | 2018-06-21 15:07 | GI Progress Note ---
Assessment/Plan Assessment/Plan Problems: (1) Dehydration ICD Codes: E86.0 - Dehydration SNOMED: 81842818 (2) Rectal bleed ICD Codes: K62.5 - Hemorrhage of anus and rectum SNOMED: 71211566 (3) Dyslipidemia ICD Codes: E78.5 - Dyslipidemia SNOMED: 572604886 (4) Ulcerative colitis ICD Codes: K51.90 - Ulcerative colitis, unspecified, without complications SNOMED: 12107294 (5) GERD (gastroesophageal reflux disease) ICD Codes: K21.9 - GERD (gastroesophageal reflux disease) SNOMED: 541650348 (6) Pancolitis ICD Codes: K51.00 - Ulcerative (chronic) pancolitis without complications SNOMED: 726350771 Status: stable Status Narrative Discussed with Dr. Plascencia. Assessment/Plan Lab draws >> CBC, LFTs, Hepatitis panel, Tspot RTC after lab draw results The patient was seen and examined at bedside and all new and available data was reviewed in the patients chart. I agree with the above findings, impression and plan. (Patient seen earlier today. Signature stamp does not reflect patient encounter time.). - Garrick Plascencia MD Subjective Subjective rectal bleed abdominal discomfort increased urgency of BM, 6-8 day Objective T98 RA WT 142lbs General Appearance: WD/WN, no apparent distress, alert Cardiovascular: normal rate Respiratory/Chest: normal breath sounds, no respiratory distress Abdominal Exam: normal bowel sounds, non tender, soft Extremities: normal range of motion, non-tender Estelle Shah NP Jun 21, 2018 15:07
== END 2018-05-25 10:00 | disposition home or self-care (01) ==
LOC: PAN 09:30
DX: E86.0 Dehydration (principal); K62.5 Hemorrhage of anus and rectum; E78.5 Hyperlipidemia, unspecified; K51.90 Ulcerative colitis, unspecified, without complications; K21.9 Gastro-esophageal reflux disease without esophagitis; K51.00 Ulcerative (chronic) pancolitis without complications
CPT/HCPCS: 36415; 80076; 85025; 86481; 96365; G0463; 86705; 86709; 86803; 87340; 99212

== ENCOUNTER 2018-05-25 10:40 | Outpatient (CLI) | payer MEDICARE, OTHER ==
--- NOTE | 2018-05-26 17:30 | GI Progress Note ---
Assessment/Plan Problems: (1) Dehydration ICD Codes: E86.0 - Dehydration SNOMED: 05994435 (2) Rectal bleed ICD Codes: K62.5 - Hemorrhage of anus and rectum SNOMED: 51978508 (3) Dyslipidemia ICD Codes: E78.5 - Dyslipidemia SNOMED: 959949747 (4) Ulcerative colitis ICD Codes: K51.90 - Ulcerative colitis, unspecified, without complications SNOMED: 90178805 (5) GERD (gastroesophageal reflux disease) ICD Codes: K21.9 - GERD (gastroesophageal reflux disease) SNOMED: 793222576 (6) Pancolitis ICD Codes: K51.00 - Ulcerative (chronic) pancolitis without complications SNOMED: 881243252 Status: stable Status Narrative Discussed with Dr. Plascencia. Assessment/Plan Lab draws >> CBC, LFTs, Hepatitis panel, Tspot RTC after lab draw results The patient was seen and examined at bedside and all new and available data was reviewed in the patients chart. I agree with the above findings, impression and plan. (Patient seen earlier today. Signature stamp does not reflect patient encounter time.). - Garrick Plascencia MD Subjective Subjective rectal bleed abdominal discomfort increased urgency of BM, 6-8 day Objective T98 RA WT 142lbs General Appearance: WD/WN, no apparent distress, alert Cardiovascular: normal rate Respiratory/Chest: normal breath sounds, no respiratory distress Abdominal Exam: normal bowel sounds, non tender, soft Extremities: normal range of motion, non-tender Estelle Shah NP May 26, 2018 17:30
== END 2018-05-25 12:40 | disposition home or self-care (01) ==
LOC: LAB 10:40
DX: K51.90 Ulcerative colitis, unspecified, without complications (principal); E86.0 Dehydration; E78.5 Hyperlipidemia, unspecified; K21.9 Gastro-esophageal reflux disease without esophagitis; K51.00 Ulcerative (chronic) pancolitis without complications

== ENCOUNTER 2018-06-14 14:23 | Outpatient (CLI) | payer MEDICARE, OTHER ==
[2018-06-14 14:00] VITALS: BP 135/77
--- NOTE | 2018-06-14 15:35 | GI Progress Note ---
Assessment/Plan Problems: (1) Pancolitis ICD Codes: K51.00 - Ulcerative (chronic) pancolitis without complications SNOMED: 004302332 (2) GERD (gastroesophageal reflux disease) ICD Codes: K21.9 - GERD (gastroesophageal reflux disease) SNOMED: 938432089 (3) Dehydration ICD Codes: E86.0 - Dehydration SNOMED: 48189278 (4) Ulcerative colitis ICD Codes: K51.90 - Ulcerative colitis, unspecified, without complications SNOMED: 02057629 (5) GAVE (gastric antral vascular ectasia) ICD Codes: K31.819 - Angiodysplasia of stomach and duodenum without bleeding SNOMED: 46184853 (6) Submucosal lesion of stomach ICD Codes: K31.89 - Submucosal lesion of stomach SNOMED: 31902716 (7) Rectal bleed ICD Codes: K62.5 - Hemorrhage of anus and rectum SNOMED: 76870744 Status: stable Status Narrative Seen with Dr. Plascencia. Assessment/Plan Start Humira Regime. - Initial loading dose of 160mg given today in clinic. - RTC x 2 weeks for 80 mg dose. - plan to follow with 40 mg maintenance dose every other week starting day #29. The patient was seen and examined at bedside and all new and available data was reviewed in the patients chart. I agree with the above findings, impression and plan. (Patient seen earlier today. Signature stamp does not reflect patient encounter time.). - Garrick Plascencia MD Subjective Subjective diarrhea Objective Last 24 Hour Vital Signs Date Time Temp Pulse Resp B/P (MAP) Pulse Ox O2 Delivery O2 Flow Rate FiO2 06/14/18 14:00 98.3 89 135/77 97 General Appearance: WD/WN, no apparent distress, alert Cardiovascular: normal rate Respiratory/Chest: normal breath sounds, no respiratory distress Abdominal Exam: normal bowel sounds, non tender, soft Extremities: normal range of motion, non-tender Estelle Shah RESEARCH LABORATORY TECHNICIAN Jun 14, 2018 15:35
== END 2018-06-14 14:53 | disposition home or self-care (01) ==
LOC: PAN 14:23
DX: K51.00 Ulcerative (chronic) pancolitis without complications (principal); K21.9 Gastro-esophageal reflux disease without esophagitis; E86.0 Dehydration; K31.819 Angiodysplasia of stomach and duodenum without bleeding; K31.89 Other diseases of stomach and duodenum; K62.5 Hemorrhage of anus and rectum; R19.7 Diarrhea, unspecified
CPT/HCPCS: 99213

== ENCOUNTER 2018-06-28 14:12 | Outpatient (CLI) | payer MEDICARE, OTHER ==
[2018-06-28 14:19] VITALS: BP 122/72
--- NOTE | 2018-06-28 15:14 | GI Progress Note ---
Assessment/Plan Problems: (1) Ulcerative colitis ICD Codes: K51.90 - Ulcerative colitis, unspecified, without complications SNOMED: 07073859 (2) Dehydration ICD Codes: E86.0 - Dehydration SNOMED: 56789702 (3) GERD (gastroesophageal reflux disease) ICD Codes: K21.9 - GERD (gastroesophageal reflux disease) SNOMED: 964762720 (4) Pancolitis ICD Codes: K51.00 - Ulcerative (chronic) pancolitis without complications SNOMED: 820585278 (5) Rectal bleed ICD Codes: K62.5 - Hemorrhage of anus and rectum SNOMED: 12038354 (6) GAVE (gastric antral vascular ectasia) ICD Codes: K31.819 - Angiodysplasia of stomach and duodenum without bleeding SNOMED: 38218046 (7) Submucosal lesion of stomach ICD Codes: K31.89 - Submucosal lesion of stomach SNOMED: 21595576 Status: stable Status Narrative Seen with Dr. Plascencia. Assessment/Plan On Humira decrease prednisone to 15mg RTC x 2 weeks The patient was seen and examined at bedside and all new and available data was reviewed in the patients chart. I agree with the above findings, impression and plan. (Patient seen earlier today. Signature stamp does not reflect patient encounter time.). - Garrick Plascencia MD Subjective Subjective fatigue, in the am weakness in both legs SOB positive mouth sore, taking amoxicillin + unknown liquid medication on Humira Objective T 98.1 BP 122/72 P 90 96 RA WT 150 General Appearance: WD/WN, no apparent distress, alert Cardiovascular: normal rate Respiratory/Chest: normal breath sounds, no respiratory distress Abdominal Exam: normal bowel sounds, non tender, soft Extremities: normal range of motion, non-tender Estelle Shah NP Jun 28, 2018 15:14
[2018-07-01] MEDS ORDERED: HUMIRA40 MG/0.2 SUBQ (14:20)
== END 2018-06-28 14:42 | disposition home or self-care (01) ==
LOC: PAN 14:12
DX: K51.90 Ulcerative colitis, unspecified, without complications (principal); E86.0 Dehydration; K21.9 Gastro-esophageal reflux disease without esophagitis; K51.00 Ulcerative (chronic) pancolitis without complications; K62.5 Hemorrhage of anus and rectum; K31.819 Angiodysplasia of stomach and duodenum without bleeding; K31.89 Other diseases of stomach and duodenum; R53.1 Weakness; R06.02 Shortness of breath
CPT/HCPCS: 99213

== ENCOUNTER 2018-08-02 14:32 | Outpatient (CLI) | payer MEDICARE, OTHER ==
[~2018-08-02 14:32] MED LIST changes: +HUMIRA40 MG/0.2 SUBQ
[2018-08-31] MEDS ORDERED: MERCAPTOPURINE50 MG PO (08:23)
[2018-08-31] MEDS ORDERED: PREDNISONE10 M2 PO (08:23)
[2018-09-14] MEDS ORDERED: MERCAPTOPURINE50 MG PO (08:35)
[2018-09-14] MEDS ORDERED: PREDNISONE20 MG ORAL (08:35)
== END 2018-08-02 15:02 | disposition home or self-care (01) ==
LOC: PAN 14:32
DX: K50.90 Crohn's disease, unspecified, without complications (principal)
CPT/HCPCS: 87324

== ENCOUNTER 2018-08-09 13:54 | Outpatient (CLI) | payer MEDICARE, OTHER ==
[2018-08-09 14:00] VITALS: BP 92/54
--- NOTE | 2018-08-09 15:24 | GI Progress Note ---
Assessment/Plan Problems: (1) Pancolitis ICD Codes: K51.00 - Ulcerative (chronic) pancolitis without complications SNOMED: 354780993 (2) Ulcerative colitis ICD Codes: K51.90 - Ulcerative colitis, unspecified, without complications SNOMED: 73047604 (3) GAVE (gastric antral vascular ectasia) ICD Codes: K31.819 - Angiodysplasia of stomach and duodenum without bleeding SNOMED: 91508493 (4) Rectal bleed ICD Codes: K62.5 - Hemorrhage of anus and rectum SNOMED: 70148633 (5) Dehydration ICD Codes: E86.0 - Dehydration SNOMED: 83353448 (6) GERD (gastroesophageal reflux disease) ICD Codes: K21.9 - GERD (gastroesophageal reflux disease) SNOMED: 522785917 Status: stable Status Narrative Seen with Dr. Plascencia Assessment/Plan add Uceris Add cortisone enema DC p.o. prednisone Return to clinic in 2 weeks The patient was seen and examined at bedside and all new and available data was reviewed in the patients chart. I agree with the above findings, impression and plan. (Patient seen earlier today. Signature stamp does not reflect patient encounter time.). - Garrick Plascencia MD Subjective Subjective The patient still complains of severe abdominal pain States she is had multiple episodes of diarrhea, especially in the morning Objective Temperature 98.2 Blood pressure 111/78 Pulse 79 94% room air General Appearance: WD/WN, no apparent distress, alert Cardiovascular: normal rate Respiratory/Chest: normal breath sounds, no respiratory distress Abdominal Exam: normal bowel sounds, non tender, soft Extremities: normal range of motion, non-tender Estelle Shah NP Aug 09, 2018 15:24
== END 2018-08-09 14:24 | disposition home or self-care (01) ==
LOC: PAN 13:54
DX: K51.00 Ulcerative (chronic) pancolitis without complications (principal); K31.819 Angiodysplasia of stomach and duodenum without bleeding; K62.5 Hemorrhage of anus and rectum; E86.0 Dehydration; K21.9 Gastro-esophageal reflux disease without esophagitis
CPT/HCPCS: 99213

== ENCOUNTER 2018-08-23 14:18 | Outpatient (CLI) | payer MEDICARE, OTHER ==
--- NOTE | 2018-08-23 15:14 | GI Progress Note ---
Assessment/Plan Problems: (1) GAVE (gastric antral vascular ectasia) ICD Codes: K31.819 - Angiodysplasia of stomach and duodenum without bleeding SNOMED: 76701893 (2) GERD (gastroesophageal reflux disease) ICD Codes: K21.9 - GERD (gastroesophageal reflux disease) SNOMED: 283385046 (3) Dehydration ICD Codes: E86.0 - Dehydration SNOMED: 96748512 (4) Ulcerative colitis ICD Codes: K51.90 - Ulcerative colitis, unspecified, without complications SNOMED: 13511954 (5) Submucosal lesion of stomach ICD Codes: K31.89 - Submucosal lesion of stomach SNOMED: 17736322 (6) Pancolitis ICD Codes: K51.00 - Ulcerative (chronic) pancolitis without complications SNOMED: 652021493 Status: unchanged Status Narrative Seen with Dr. Plascencia. Assessment/Plan Discontinue Humira start 6-MP 75 Grams Prednisone 20 mg Appraisal 4 tabs Return to clinic in 1 week for lab draw The patient was seen and examined at bedside and all new and available data was reviewed in the patients chart. I agree with the above findings, impression and plan. (Patient seen earlier today. Signature stamp does not reflect patient encounter time.). - Garrick Plascencia MD Subjective Subjective Does not feel like Humira is working still has complaint of bloody stools Objective Temperature 97.9 Blood pressure 124/74 Pulse 83 94% room air General Appearance: WD/WN, no apparent distress, alert Cardiovascular: normal rate Respiratory/Chest: normal breath sounds, no respiratory distress Abdominal Exam: normal bowel sounds, non tender, soft Extremities: normal range of motion, non-tender Estelle Shah [employer]USB[employer] Aug 23, 2018 15:14
[2018-08-24 08:35] VITALS: BP 124/74
== END 2018-08-23 14:48 | disposition home or self-care (01) ==
LOC: PAN 14:18
DX: K31.819 Angiodysplasia of stomach and duodenum without bleeding (principal); K21.9 Gastro-esophageal reflux disease without esophagitis; E86.0 Dehydration; K51.90 Ulcerative colitis, unspecified, without complications; K31.89 Other diseases of stomach and duodenum; K51.00 Ulcerative (chronic) pancolitis without complications
CPT/HCPCS: 99212

== ENCOUNTER 2018-08-30 13:06 | Outpatient (CLI) | payer MEDICARE, OTHER ==
--- NOTE | 2018-08-30 14:42 | General Progress Note ---
Assessment/Plan Problem List: (1) History of nephrectomy ICD Codes: Z90.5 - History of nephrectomy SNOMED: 214524394 (2) Pancolitis ICD Codes: K51.00 - Ulcerative (chronic) pancolitis without complications SNOMED: 857199689 (3) GERD (gastroesophageal reflux disease) ICD Codes: K21.9 - GERD (gastroesophageal reflux disease) SNOMED: 685785366 (4) Ulcerative colitis ICD Codes: K51.90 - Ulcerative colitis, unspecified, without complications SNOMED: 40273677 (5) HTN (hypertension) ICD Codes: I10 - HTN (hypertension) SNOMED: 54105919 Assessment/Plan on prednisone 20 mg apriso 6 MP 75 mg check labs RTC 2 weeks Subjective ROS Limited/Unobtainable: Yes Allergies: Coded Allergies: SHELLFISH DERIVED (Verified Allergy, Mild, 04/26/18) COPIED from uncoded section Objective General Appearance: alert EENT: normal ENT inspection Neck: supple Cardiovascular: normal rate Respiratory/Chest: decreased breath sounds Abdomen: normal bowel sounds, non tender, soft Extremities: non-tender Garrick Plascencia MD Aug 30, 2018 14:42
[2018-08-31] MEDS ORDERED: MERCAPTOPURINE50 MG PO (08:23)
[2018-08-31] MEDS ORDERED: PREDNISONE10 M2 PO (08:23)
== END 2018-08-30 13:36 | disposition home or self-care (01) ==
LOC: PAN 13:06
DX: K51.00 Ulcerative (chronic) pancolitis without complications (principal); K21.9 Gastro-esophageal reflux disease without esophagitis; K51.90 Ulcerative colitis, unspecified, without complications; I10 Essential (primary) hypertension; Z90.5 Acquired absence of kidney; Z91.013 Allergy to seafood
CPT/HCPCS: 99212

== ENCOUNTER 2018-09-13 12:51 | Outpatient (CLI) | payer MEDICARE, OTHER ==
[~2018-09-13 12:51] MED LIST changes: +MERCAPTOPURINE50 MG PO; +PREDNISONE10 M2 PO
[2018-09-13 13:00] VITALS: BP 124/77
--- NOTE | 2018-09-13 14:10 | General Progress Note ---
Assessment/Plan Problem List: (1) Rectal bleed ICD Codes: K62.5 - Hemorrhage of anus and rectum SNOMED: 26109513 (2) Ulcerative colitis ICD Codes: K51.90 - Ulcerative colitis, unspecified, without complications SNOMED: 71438448 Assessment/Plan still c/o rectal bleed increase 6 MP to 100 check labs today RTC in one week Subjective ROS Limited/Unobtainable: Yes Allergies: Coded Allergies: SHELLFISH DERIVED (Verified Allergy, Mild, 04/26/18) COPIED from uncoded section Objective General Appearance: alert EENT: normal ENT inspection Neck: supple Cardiovascular: normal rate Respiratory/Chest: decreased breath sounds Abdomen: normal bowel sounds, non tender, soft Extremities: non-tender Garrick Plascencia MD Sep 13, 2018 14:10
[2018-09-14] MEDS ORDERED: MERCAPTOPURINE50 MG PO (08:35)
[2018-09-14] MEDS ORDERED: PREDNISONE20 MG ORAL (08:35)
== END 2018-09-13 14:51 | disposition home or self-care (01) ==
LOC: PAN 12:51
DX: K62.5 Hemorrhage of anus and rectum (principal); K51.90 Ulcerative colitis, unspecified, without complications; Z91.013 Allergy to seafood
CPT/HCPCS: 99212